=== PATIENT | female | born 1985 | race Caucasian/White ===

== ENCOUNTER 2018-08-11 00:44 | Inpatient (IN) | payer MEDICARE, OTHER ==
[~2018-08-11] VITALS: Ht 157.5 cm; Wt 68.1 kg
[2018-08-11] VITALS (20 sets, daily range): BP systolic 103–144; BP diastolic 56–84
[2018-08-11 01:05] LABS: BASO # 0.1 x10^3/uL (0.0-0.2); BASO % 0 % (0-3); EOS # 0.3 x10^3/uL (0.0-0.7); EOS % 2 % (0-3); HEMOGLOBIN 15.5 g/dL (12.0-15.5); LYMPH # 3.7 x10^3/uL (1.0-4.8); LYMPH % 23 % (24-48); MEAN CORPUSCULAR HEMOGLOBIN 30 pg (25-35); MEAN CORPUSCULAR HGB CONC 34 g/dL (31-37); MEAN CORPUSCULAR VOLUME 89 fL (79-100); MONO # 0.9 x10^3/uL (0.0-1.1); MONO % 6 % (0-9); NEUT # 10.9 x10^3uL (1.8-7.7); NEUT % 69 % (31-73); PLATELET COUNT 314 x10^3/uL (140-400); RED BLOOD COUNT 5.19 x10^6/uL (3.50-5.40); WHITE BLOOD COUNT 15.9 x10^3/uL (4.0-11.0)
[2018-08-11 01:18] LABS: CALCIUM 9.2 mg/dL (8.5-10.1); CREATININE 0.9 mg/dL (0.6-1.0); GFR 72.1; POTASSIUM 3.5 mmol/L (3.5-5.1)
[2018-08-11 01:21] LABS: BILIRUBIN,URINE NEGATIVE (NEG); CLARITY,URINE CLEAR; COLOR,URINE YELLOW; NITRITE,URINE NEGATIVE (NEG); PROTEIN,URINE NEGATIVE (NEG-TRACE); UROBILINOGEN,URINE 0.2 mg/dL (0.2 mg/dL)
[2018-08-11 01:26] LABS: ALBUMIN 4.4 g/dL (3.4-5.0); ALBUMIN/GLOBULIN RATIO 1.1 (1.0-1.7); MAGNESIUM 2.3 mg/dL (1.8-2.4); TOTAL BILIRUBIN 0.2 mg/dL (0.2-1.0); TOTAL PROTEIN 8.5 g/dL (6.4-8.2)
[2018-08-11 01:27] LABS: BARBITURATES NEG (NEG); BENZODIAZEPINES NEG (NEG); CANNABINOIDS NEG (NEG); COCAINE NEG (NEG); METHADONE NEG (NEG); OPIATES NEG (NEG); PHENCYCLIDINE NEG (NEG)
[2018-08-11 01:29] LABS: AMPHETAMINE/METHAMPHETAMINE POS (NEG)
[2018-08-11 01:30] LABS: PROTHROMBIN TIME PATIENT 10.9 SEC (11.7-14.0)
[2018-08-11] MEDS ORDERED: NALOXONE 2 MG/2 ML DISP.SYRIN. IV ONE (01:30)
[2018-08-11] MEDS ORDERED: IV NORMAL SALINE 1000ML BAG 1,000 ML IV ONE ×2 (01:30→04:00)
[2018-08-11 01:32] LABS: BACTERIA,URINE 0 /HPF (0-FEW); SQUAMOUS EPITHELIAL CELL,UR FEW /LPF; WBC,URINE 0 /HPF (0-4)
--- NOTE | 2018-08-11 02:54 | RAD ---
CT head without contrast: Reason for examination: Altered mental status. Comparison is made to previous study dated 07/02/2005. Axial images were obtained through the brain. No contrast was administered. Exposure: One or more of the following individualized dose reduction techniques were utilized for this examination: 1. Automated exposure control 2. Adjustment of the mA and/or kV according to patient size 3. Use of iterative reconstruction technique. Ventricular systems are symmetric and not abnormally dilated. No midline shift is seen. There is no evidence of intracranial hemorrhage, infarct, mass or edema. No abnormalities are seen at the orbits. The paranasal sinuses and mastoid air cells are clear. No acute skull abnormality is seen. IMPRESSION: No acute intracranial abnormality evident. Electronically signed by: Cherelle Juan MD (08/11/2018 2:51 AM) [facility] [place]
[2018-08-11] MEDS ORDERED: cefTRIAXone IV Push 1 GM VIAL. IVP ONE (04:00)
--- NOTE | 2018-08-11 04:03 | PHYS DOC ---
Past Medical History Additional Past Medical Histor: narcolepsy Alcohol Use: Occasionally Drug Use: None Adult General Chief Complaint Chief Complaint: SHORTNESS OF BREATH HPI HPI Patient is a 33 year old female who presents with difficulty breathing and altered mental status. History is limited from the patient due to her altered mental status. Patient was brought in by her boyfriend after reportedly drinking 4 ounces of alcohol tonight. Patient does have a history of narcolepsy for which she is on Adderall. Both the but boyfriend and father deny any use of recreational drugs. She has a history of significant sensitivity to narcotic pain medicines. Patient had recent neck surgery due to radicular symptoms. She traveled to [place] in April.[] Review of Systems Review of Systems Unable to obtain due to altered mental status All other systems were reviewed and found to be within normal limits, except as documented in this note. Current Medications Current Medications Current Medications Medications (Trade) Dose Ordered Sig/Kimberly Start Time Stop Time Status Last Admin Dose Admin Ceftriaxone Sodium (Rocephin) 1 gm 1X ONCE 08/11/18 04:00 08/11/18 04:01 08/11/18 03:52 1 GM Naloxone HCl (Narcan) 2 mg 1X ONCE 08/11/18 01:30 08/11/18 01:31 DC 08/11/18 00:55 2 MG Sodium Chloride 1,000 ml @ 1,000 mls/hr 1X ONCE 08/11/18 04:00 08/11/18 04:59 08/11/18 03:49 1,000 MLS/HR Allergies Allergies Allergies Coded Allergies Type Severity Reaction Last Updated Verified hydrocodone Allergy Mild irritable 08/11/18 Yes Physical Exam Physical Exam Constitutional: Well developed, well nourished, somnolent, apneic episodes.. [] HENT: Normocephalic, atraumatic, bilateral external ears normal, oropharynx moist, no oral exudates, nose normal. [] Eyes: PERRLA, conjunctiva normal, no discharge. [] Neck: Normal range of motion, no tenderness, supple, no stridor. No nuchal rigidity [] Cardiovascular:Heart rate is slightly tachycardic in the low 100s with a regular rhythm, no murmur [] Lungs & Thorax: Bilateral breath sounds clear to auscultation [] Abdomen: Bowel sounds normal, soft, no tenderness, no masses, no pulsatile masses. [] Skin: Warm, dry, no erythema, no rash. [] Back: No tenderness, no CVA tenderness. [] Extremities: No tenderness, no cyanosis, no clubbing, ROM intact, no edema. [] Neurologic: Somnolent, tolerates her oral secretions, gag reflex is present, has occasional apneic episodes[] Psychologic: Unable to assess[] Current Patient Data Lab Values Laboratory Tests Test 08/11/18 00:54 08/11/18 00:55 08/11/18 01:10 08/11/18 01:13 Glucose (Fingerstick) 86 mg/dL (70-99) White Blood Count 15.9 x10^3/uL (4.0-11.0) H Red Blood Count 5.19 x10^6/uL (3.50-5.40) Hemoglobin 15.5 g/dL (12.0-15.5) Hematocrit 46.0 % (36.0-47.0) Mean Corpuscular Volume 89 fL (79-100) Mean Corpuscular Hemoglobin 30 pg (25-35) Mean Corpuscular Hemoglobin Concent 34 g/dL (31-37) Red Cell Distribution Width 14.0 % (11.5-14.5) Platelet Count 314 x10^3/uL (140-400) Neutrophils (%) (Auto) 69 % (31-73) Lymphocytes (%) (Auto) 23 % (24-48) L Monocytes (%) (Auto) 6 % (0-9) Eosinophils (%) (Auto) 2 % (0-3) Basophils (%) (Auto) 0 % (0-3) Neutrophils # (Auto) 10.9 x10^3uL (1.8-7.7) H Lymphocytes # (Auto) 3.7 x10^3/uL (1.0-4.8) Monocytes # (Auto) 0.9 x10^3/uL (0.0-1.1) Eosinophils # (Auto) 0.3 x10^3/uL (0.0-0.7) Basophils # (Auto) 0.1 x10^3/uL (0.0-0.2) Prothrombin Time 10.9 SEC (11.7-14.0) L Prothrombin Time INR 0.8 (0.8-1.1) Maternal Serum HCG Beta Subunit < 1 mIU/mL (0-5) Sodium Level 143 mmol/L (136-145) Potassium Level 3.5 mmol/L (3.5-5.1) Chloride Level 104 mmol/L (98-107) Carbon Dioxide Level 22 mmol/L (21-32) Anion Gap 17 (6-14) H Blood Urea Nitrogen 14 mg/dL (7-20) Creatinine 0.9 mg/dL (0.6-1.0) Estimated GFR (Cockcroft-Gault) 72.1 BUN/Creatinine Ratio 16 (6-20) Glucose Level 104 mg/dL (70-99) H Lactic Acid Level 5.4 mmol/L (0.4-2.0) *H Calcium Level 9.2 mg/dL (8.5-10.1) Magnesium Level 2.3 mg/dL (1.8-2.4) Total Bilirubin 0.2 mg/dL (0.2-1.0) Aspartate Amino Transferase (AST) 23 U/L (15-37) Alanine Aminotransferase (ALT) 40 U/L (14-59) Alkaline Phosphatase 71 U/L (46-116) Ammonia 15 mcmol/L (11-34) Troponin I Quantitative < 0.017 ng/mL (0.000-0.055) OG-Rhh-Q-Type Natriuretic Peptide 12 pg/mL (0-124) Total Protein 8.5 g/dL (6.4-8.2) H Albumin 4.4 g/dL (3.4-5.0) Albumin/Globulin Ratio 1.1 (1.0-1.7) Ethyl Alcohol Level 154 mg/dL (0-10) H Urine Collection Type U cath Urine Color Yellow Urine Clarity Clear Urine pH 6.0 Urine Specific Ernest 1.010 Urine Protein Negative mg/dL (NEG-TRACE) Urine Glucose (UA) Negative mg/dL (NEG) Urine Ketones (Stick) 15 mg/dL (NEG) Urine Blood Small (NEG) Urine Nitrite Negative (NEG) Urine Bilirubin Negative (NEG) Urine Urobilinogen Dipstick 0.2 mg/dL (0.2 mg/dL) Urine Leukocyte Esterase Negative (NEG) Urine RBC 3-5 /HPF (0-2) Urine WBC 0 /HPF (0-4) Urine Squamous Epithelial Cells Few /LPF Urine Bacteria 0 /HPF (0-FEW) Urine Opiates Screen Neg (NEG) Urine Methadone Screen Neg (NEG) Urine Barbiturates Neg (NEG) Urine Phencyclidine Screen Neg (NEG) Urine Amphetamine/Methamphetamine Pos (NEG) Urine Benzodiazepines Screen Neg (NEG) Urine Cocaine Screen Neg (NEG) Urine Cannabinoids Screen Neg (NEG) Urine Ethyl Alcohol Pos (NEG) POC Urine HCG, Qualitative Hcg negative (Negative) Laboratory Tests 08/11/18 00:55 Laboratory Tests 08/11/18 00:55 EKG EKG EKG shows a sinus tachycardia at 110 bpm, normal axis, QTC of 455 ms, no ST elevation, interpreted by me at 0106[] Radiology/Procedures Radiology/Procedures Chest x-ray shows no infiltrate, no effusion, no pneumothorax CT head without contrast: Reason for examination: Altered mental status. Comparison is made to previous study dated 07/02/2005. Axial images were obtained through the brain. No contrast was administered. Exposure: One or more of the following individualized dose reduction techniques were utilized for this examination: 1. Automated exposure control 2. Adjustment of the mA and/or kV according to patient size 3. Use of iterative reconstruction technique. Ventricular systems are symmetric and not abnormally dilated. No midline shift is seen. There is no evidence of intracranial hemorrhage, infarct, mass or edema. No abnormalities are seen at the orbits. The paranasal sinuses and mastoid air cells are clear. No acute skull abnormality is seen. IMPRESSION: No acute intracranial abnormality evident.[] Course & Med Decision Making Course & Med Decision Making Pertinent Labs and Imaging studies reviewed. (See chart for details) ED course and medical decision making: Patient arrived, was placed in bed, and tolerated exam well. IV access was established. She was given Narcan with an improvement in her respiratory status but did not fully awaken. Her fingerstick was noted to be in the 80s. And her oxygen saturation was normal on 2 L nasal cannula with outside of the apneic episodes noted previously. She was transported to and from [place] with any complications. Due to the elevated lactate and the elevated white count prophylactic antibiotics are being administered however the lactate may be due to these apneic episodes and the white count due to the stress of her current condition. She is afebrile again without any nuchal rigidity. Do not believe this is meningitis. Patient continues to be somnolent again maintaining her airway, and so will be admitting her for further evaluation and treatment.[] Dragon Disclaimer Dragon Disclaimer This electronic medical record was generated, in whole or in part, using a voice recognition dictation system. Departure Departure Impression: Primary Impression: Altered mental status Additional Impressions: Elevated ETOH level Elevated lactic acid level Disposition: ADMITTED INPATIENT Admitting Physician: Laurita Jimenez Condition: IMPROVED Referrals: NO PCP (PCP) Problem Qualifiers Primary Impression: Altered mental status Altered mental status type: unspecified Qualified Codes: R41.82 - Altered mental status, unspecified Additional Impressions: Elevated ETOH level Blood alcohol level: 120-199 mg/100 ml Qualified Codes: Y90.6 - Blood alcohol level of 120-199 mg/100 ml BENOIT DE LUNA DO Aug 11, 2018 04:03
[2018-08-11] MEDS ORDERED: ONDANSETRON PF 4 MG/2 ML VIAL. IV PRN ×2 (04:15→14:15)
[2018-08-11] MEDS ORDERED: DESV100T14 PO (05:53)
[2018-08-11] MEDS ORDERED: DEXT30CA6 PO (05:54)
[2018-08-11] MEDS ORDERED: LEVO75TA5 PO (05:54)
--- NOTE | 2018-08-11 06:11 | NUR ---
Admission Note: Pt admitted to 104 from ED. Pt did not wake up while transferring to bed and speaking with patient. Pt did however wake up when checking pupilary response. After she woke up she was appropriate in answering questions. Began to cough, states she has had that cough ever since a week after her C5/C6 fusion surgery last week at [facility]. Admitted to mildly drinking early in the night. Home meds reviewed with patient. Boyfriend and Father have been in room. SR/ST on monitor, left on 2L NC that ED put on her. Vitals stable. Pt did however go back into very deep sleep after left alone. Boyfriend remains at bedside.
[2018-08-11] MEDS: IV NORMAL SALINE 1000ML BAG 1,000 ML IV SCH ×3 (06:38→20:31)
--- NOTE | 2018-08-11 08:04 | RAD ---
EXAM: CHEST 1 VIEW History: Altered mental status COMPARISON: 05/13/2007 TECHNIQUE: Single portable radiograph of the chest FINDINGS: The cardiac silhouette is unremarkable. The lungs are clear bilaterally. The costophrenic sulci are clear and well demarcated. IMPRESSION: No radiographic evidence of an acute cardiopulmonary process. Electronically signed by: Matti Shaw MD (08/11/2018 8:01 AM) [facility]
--- NOTE | 2018-08-11 11:11 | PDOC1 ---
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 Both the but boyfriend and father deny any use of recreational drugs. SHE TAKES adderall for narcolepsy so UDS FALSELY POS FOR METH She has a history of significant sensitivity to narcotic pain medicines. Patient had recent neck surgery due to radicular symptoms. 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 [place] Past Medical History Past Medical History Past Medical History Additional Past Medical Histor: narcolepsy Alcohol Use: Occasionally Drug Use: None ALCOHOL ABUSE FAMILY HX HTN, ETOH Cardiovascular: No pertinent hx Pulmonary: Asthma GI: No pertinent hx Infectious disease: No pertinent hx Family History Family History: Hypertension Social History Smoke: No ALCOHOL: social Drugs: None, Other (IS A MED STUDENT HAS FINISHED HER 2ND YEAR IN [place]) Current Medications Current Medications Current Medications Naloxone HCl (Narcan) 2 mg 1X ONCE IV Last administered on 08/11/18at 00:55; Start 08/11/18 at 01:30; Stop 08/11/18 at 01:31; Status DC Sodium Chloride 1,000 ml @ 1,000 mls/hr 1X ONCE IV Last administered on at 01:19; Start 08/11/18 at 01:30; Stop 08/11/18 at 02:29; Status DC Sodium Chloride 1,000 ml @ 1,000 mls/hr 1X ONCE IV Last administered on at 03:49; Start 08/11/18 at 04:00; Stop 08/11/18 at 04:59; Status DC Ceftriaxone Sodium (Rocephin) 1 gm 1X ONCE IVP Last administered on 08/11/18at 03:52; Start 08/11/18 at 04:00; Stop 08/11/18 at 04:01; Status DC Ondansetron HCl (Zofran) 4 mg PRN Q8HRS PRN IV NAUSEA/VOMITING 1ST CHOICE; Start 08/11/18 at 04:15; Stop 08/12/18 at 04:14 Sodium Chloride 1,000 ml @ 150 mls/hr Q6H40M IV Last administered on at 06:38; Start 08/11/18 at 04:30; Stop 08/12/18 at 04:29 Active Scripts Active Reported Adderall Xr 30 Mg Capsule (Dextroamphetamine/Amphetamine) 30 Mg Cap.er.24h 1 Cap PO BID Levothyroxine Sodium 75 Mcg Tablet 1 Tab PO DAILY Khedezla (Desvenlafaxine) 100 Mg Tab.er.24h 100 Mg PO DAILY Allergies Allergies: Coded Allergies: hydrocodone (Verified Allergy, Mild, irritable, 08/11/18) ROS Review of System 14 PT ROS OTHERWISE NEG General: No: Chills, Night Sweats, Fatigue, Malaise, Appetite, Other PSYCHOLOGICAL ROS: No: Anxiety, Behavioral Disorder, Concentration difficultie , Decreased libido, Depression, Disorientation, Hallucinations, Hostility, Irritablity, Memory difficulties, Mood Swings, Obsessive thoughts, Physical abuse, Sexual abuse, Sleep disturbances, Suicidal ideation, Other Eyes: No Blurry vision, No Decreased vision, No Double vision, No Dry eyes, No Excessive tearing, No Eye Pain, No Itchy Eyes, No Loss of vision, No Photophobia , No Scotomata, No Uses contacts, No Uses glasses, No Other HEENT: No: Heacaches, Visual Changes, Hearing change, Nasal congestion, Nasal discharge, Oral lesions, Sinus pain, Sore Throat, Epistaxis, Sneezing, Snoring, Tinnitus, Vertigo, Vocal changes, Other ALLERGY AND IMMUNOLOGY: No: Hives, Insect Bite Sensitivity, Itchy/Watery Eyes, Nasal Congestion, Post Nasal Drip, Seasonal Allergies, Other Hematological and Lymphatic: No: Bleeding Problems, Blood Clots, Blood Transfusions, Brusing, Night Sweats, Pallor, Swollen Lymph Nodes, Other ENDOCRINE: No: Breast Changes, Galactorrhea, Hair Pattern Changes, Hot Flashes , Malaise/lethargy, Mood Swings, Palpitations, Polydipsia/polyuria, Skin Changes , Temperature Intolerance, Unexpected Weight Changes, Other Breast: No New/Changing Breast Lumps, No Nipple changes, No Nipple discharge, No Other Respiratory: YES: Cough, SOB with excertion; No: Hemoptysis, Orthopnea, Pleuritic Pain, Shortness of breath, Sputum Changes, Stridor, Tachypnea, Wheezing, Other Cardiovascular: No Chest Pain, No Palpitations, No Orthopnea, No Paroxysmal Noc. Dyspnea, No Edema, No Lt Headedness, No Other Gastrointestinal: No Nausea, No Vomiting, No Abdominal Pain, No Diarrhea, No Constipation, No Melena, No Hematochezia, No Other Genitourinary: No Dysuria, No Frequency, No Incontinence, No Hematuria, No Retention, No Discharge, No Urgency, No Pain, No Flank Pain, No Other, No , No , No , No , No , No , No Neurological: No Behavorial Changes, No Bowel/Bladder ControlChng, No Confusion , No Dizziness, No Gait Disturbance, No Headaches, No Impaired Coord/balance, No Memory Loss, No Numbness/Tingling, No Seizures, No Speech Problems, No Tremors, No Visual Changes, No Weakness, No Other Skin: No Dry Skin, No Eczema, No Hair Changes, No Lumps, No Mole Changes, No Mottling, No Nail Changes, No Pruritus, No Rash, No Skin Lesion Changes, No Other, No Acne Physical Exam Physical Exam Physical Exam Physical Exam Constitutional: Well developed, well nourished, somnolent, apneic episodes.. [] HENT: Normocephalic, atraumatic, bilateral external ears normal, oropharynx moist, no oral exudates, nose normal. [] Eyes: PERRLA, conjunctiva normal, no discharge. [] Neck: Normal range of motion, no tenderness, supple, no stridor. No nuchal rigidity [] Cardiovascular:Heart rate is slightly tachycardic in the low 100s with a regular rhythm, no murmur [] Lungs & Thorax: Bilateral breath sounds clear to auscultation [] Abdomen: Bowel sounds normal, soft, no tenderness, no masses, no pulsatile masses. [] Skin: Warm, dry, no erythema, no rash. [] Back: No tenderness, no CVA tenderness. [] Extremities: No tenderness, no cyanosis, no clubbing, ROM intact, no edema. [] General: Alert, Oriented X3, Cooperative, mild distress HEENT: Atraumatic, PERRLA Lungs: Clear to auscultation Heart: RRR, no murmurs Breasts: Not examined Abdomen: Normal bowel sounds, Soft, No tenderness Rectal Exam: not examined PELVIC: Examination not indicated Extremities: No clubbing, No cyanosis Skin: No significant lesion Neuro: Normal speech, Strength at 5/5 X4 ext, Cranial nerves 3-12 NL Psych/Mental Status: Mental status NL, Mood NL Vitals Vitals Vital Signs Date Time Temp Pulse Resp B/P (MAP) Pulse Ox O2 Delivery O2 Flow Rate FiO2 08/11/18 08:00 98.5 92 16 127/64 (85) 98 Room Air 98.5 08/11/18 07:00 2.0 Labs Labs Laboratory Tests Test 08/11/18 00:54 08/11/18 00:55 08/11/18 01:10 08/11/18 01:13 Glucose (Fingerstick) 86 mg/dL (70-99) White Blood Count 15.9 x10^3/uL (4.0-11.0) Red Blood Count 5.19 x10^6/uL (3.50-5.40) Hemoglobin 15.5 g/dL (12.0-15.5) Hematocrit 46.0 % (36.0-47.0) Mean Corpuscular Volume 89 fL (79-100) Mean Corpuscular Hemoglobin 30 pg (25-35) Mean Corpuscular Hemoglobin Concent 34 g/dL (31-37) Red Cell Distribution Width 14.0 % (11.5-14.5) Platelet Count 314 x10^3/uL (140-400) Neutrophils (%) (Auto) 69 % (31-73) Lymphocytes (%) (Auto) 23 % (24-48) Monocytes (%) (Auto) 6 % (0-9) Eosinophils (%) (Auto) 2 % (0-3) Basophils (%) (Auto) 0 % (0-3) Neutrophils # (Auto) 10.9 x10^3uL (1.8-7.7) Lymphocytes # (Auto) 3.7 x10^3/uL (1.0-4.8) Monocytes # (Auto) 0.9 x10^3/uL (0.0-1.1) Eosinophils # (Auto) 0.3 x10^3/uL (0.0-0.7) Basophils # (Auto) 0.1 x10^3/uL (0.0-0.2) Prothrombin Time 10.9 SEC (11.7-14.0) Prothromb Time International Ratio 0.8 (0.8-1.1) Maternal Serum HCG Beta Subunit < 1 mIU/mL (0-5) Sodium Level 143 mmol/L (136-145) Potassium Level 3.5 mmol/L (3.5-5.1) Chloride Level 104 mmol/L (98-107) Carbon Dioxide Level 22 mmol/L (21-32) Anion Gap 17 (6-14) Blood Urea Nitrogen 14 mg/dL (7-20) Creatinine 0.9 mg/dL (0.6-1.0) Estimated GFR (Cockcroft-Gault) 72.1 BUN/Creatinine Ratio 16 (6-20) Glucose Level 104 mg/dL (70-99) Lactic Acid Level 5.4 mmol/L (0.4-2.0) Calcium Level 9.2 mg/dL (8.5-10.1) Magnesium Level 2.3 mg/dL (1.8-2.4) Total Bilirubin 0.2 mg/dL (0.2-1.0) Aspartate Amino Transf (AST/SGOT) 23 U/L (15-37) Alanine Aminotransferase (ALT/SGPT) 40 U/L (14-59) Alkaline Phosphatase 71 U/L (46-116) Ammonia 15 mcmol/L (11-34) Troponin I Quantitative < 0.017 ng/mL (0.000-0.055) LA-Ztm-V-Type Natriuretic Peptide 12 pg/mL (0-124) Total Protein 8.5 g/dL (6.4-8.2) Albumin 4.4 g/dL (3.4-5.0) Albumin/Globulin Ratio 1.1 (1.0-1.7) Ethyl Alcohol Level 154 mg/dL (0-10) Urine Collection Type U cath Urine Color Yellow Urine Clarity Clear Urine pH 6.0 Urine Specific [place] 1.010 Urine Protein Negative mg/dL (NEG-TRACE) Urine Glucose (UA) Negative mg/dL (NEG) Urine Ketones (Stick) 15 mg/dL (NEG) Urine Blood Small (NEG) Urine Nitrite Negative (NEG) Urine Bilirubin Negative (NEG) Urine Urobilinogen Dipstick 0.2 mg/dL (0.2 mg/dL) Urine Leukocyte Esterase Negative (NEG) Urine RBC 3-5 /HPF (0-2) Urine WBC 0 /HPF (0-4) Urine Squamous Epithelial Cells Few /LPF Urine Bacteria 0 /HPF (0-FEW) Urine Opiates Screen Neg (NEG) Urine Methadone Screen Neg (NEG) Urine Barbiturates Neg (NEG) Urine Phencyclidine Screen Neg (NEG) Urine Amphetamine/Methamphetamine Pos (NEG) Urine Benzodiazepines Screen Neg (NEG) Urine Cocaine Screen Neg (NEG) Urine Cannabinoids Screen Neg (NEG) Urine Ethyl Alcohol Pos (NEG) Bedside Urine HCG, Qualitative Hcg negative (Negative) Test 08/11/18 07:15 Lactic Acid Level 1.9 mmol/L (0.4-2.0) Laboratory Tests Test 08/11/18 00:54 08/11/18 00:55 08/11/18 01:10 08/11/18 01:13 Glucose (Fingerstick) 86 mg/dL (70-99) White Blood Count 15.9 x10^3/uL (4.0-11.0) Red Blood Count 5.19 x10^6/uL (3.50-5.40) Hemoglobin 15.5 g/dL (12.0-15.5) Hematocrit 46.0 % (36.0-47.0) Mean Corpuscular Volume 89 fL (79-100) Mean Corpuscular Hemoglobin 30 pg (25-35) Mean Corpuscular Hemoglobin Concent 34 g/dL (31-37) Red Cell Distribution Width 14.0 % (11.5-14.5) Platelet Count 314 x10^3/uL (140-400) Neutrophils (%) (Auto) 69 % (31-73) Lymphocytes (%) (Auto) 23 % (24-48) Monocytes (%) (Auto) 6 % (0-9) Eosinophils (%) (Auto) 2 % (0-3) Basophils (%) (Auto) 0 % (0-3) Neutrophils # (Auto) 10.9 x10^3uL (1.8-7.7) Lymphocytes # (Auto) 3.7 x10^3/uL (1.0-4.8) Monocytes # (Auto) 0.9 x10^3/uL (0.0-1.1) Eosinophils # (Auto) 0.3 x10^3/uL (0.0-0.7) Basophils # (Auto) 0.1 x10^3/uL (0.0-0.2) Prothrombin Time 10.9 SEC (11.7-14.0) Prothromb Time International Ratio 0.8 (0.8-1.1) Maternal Serum HCG Beta Subunit < 1 mIU/mL (0-5) Sodium Level 143 mmol/L (136-145) Potassium Level 3.5 mmol/L (3.5-5.1) Chloride Level 104 mmol/L (98-107) Carbon Dioxide Level 22 mmol/L (21-32) Anion Gap 17 (6-14) Blood Urea Nitrogen 14 mg/dL (7-20) Creatinine 0.9 mg/dL (0.6-1.0) Estimated GFR (Cockcroft-Gault) 72.1 BUN/Creatinine Ratio 16 (6-20) Glucose Level 104 mg/dL (70-99) Lactic Acid Level 5.4 mmol/L (0.4-2.0) Calcium Level 9.2 mg/dL (8.5-10.1) Magnesium Level 2.3 mg/dL (1.8-2.4) Total Bilirubin 0.2 mg/dL (0.2-1.0) Aspartate Amino Transf (AST/SGOT) 23 U/L (15-37) Alanine Aminotransferase (ALT/SGPT) 40 U/L (14-59) Alkaline Phosphatase 71 U/L (46-116) Ammonia 15 mcmol/L (11-34) Troponin I Quantitative < 0.017 ng/mL (0.000-0.055) ZI-Kid-V-Type Natriuretic Peptide 12 pg/mL (0-124) Total Protein 8.5 g/dL (6.4-8.2) Albumin 4.4 g/dL (3.4-5.0) Albumin/Globulin Ratio 1.1 (1.0-1.7) Ethyl Alcohol Level 154 mg/dL (0-10) Urine Collection Type U cath Urine Color Yellow Urine Clarity Clear Urine pH 6.0 Urine Specific [place] 1.010 Urine Protein Negative mg/dL (NEG-TRACE) Urine Glucose (UA) Negative mg/dL (NEG) Urine Ketones (Stick) 15 mg/dL (NEG) Urine Blood Small (NEG) Urine Nitrite Negative (NEG) Urine Bilirubin Negative (NEG) Urine Urobilinogen Dipstick 0.2 mg/dL (0.2 mg/dL) Urine Leukocyte Esterase Negative (NEG) Urine RBC 3-5 /HPF (0-2) Urine WBC 0 /HPF (0-4) Urine Squamous Epithelial Cells Few /LPF Urine Bacteria 0 /HPF (0-FEW) Urine Opiates Screen Neg (NEG) Urine Methadone Screen Neg (NEG) Urine Barbiturates Neg (NEG) Urine Phencyclidine Screen Neg (NEG) Urine Amphetamine/Methamphetamine Pos (NEG) Urine Benzodiazepines Screen Neg (NEG) Urine Cocaine Screen Neg (NEG) Urine Cannabinoids Screen Neg (NEG) Urine Ethyl Alcohol Pos (NEG) Bedside Urine HCG, Qualitative Hcg negative (Negative) Test 08/11/18 07:15 Lactic Acid Level 1.9 mmol/L (0.4-2.0) Images Images CT head without contrast: Reason for examination: Altered mental status. Comparison is made to previous study dated 07/02/2005. Axial images were obtained through the brain. No contrast was administered. Exposure: One or more of the following individualized dose reduction techniques were utilized for this examination: 1. Automated exposure control 2. Adjustment of the mA and/or kV according to patient size 3. Use of iterative reconstruction technique. Ventricular systems are symmetric and not abnormally dilated. No midline shift is seen. There is no evidence of intracranial hemorrhage, infarct, mass or edema. No abnormalities are seen at the orbits. The paranasal sinuses and mastoid air cells are clear. No acute skull abnormality is seen. IMPRESSION: No acute intracranial abnormality evident. Electronically signed by: Cherelle Del Rosario MD (08/11/2018 2:51 AM) [facility] DICTATED and SIGNED BY: CHERELLE DEL ROSARIO MD DATE: 08/11/18 0251 VTE Prophylaxis Ordered VTE Prophylaxis Devices: Yes VTE Pharmacological Prophylaxi: Yes Assessment/Plan Assessment/Plan Impression: Altered mental status Elevated ETOH level Elevated lactic acid level ALCOHOL TOXICITY HX NARCOLOPSY uti LEUKOCYTOSIS ASTHMA EXAC, acute has persistent cough// moderate persistent asthma symptoms x 2 yrs ADMITTED icu bed KEEP HERE TODAY neurochecks q 4 hrs [facility] BLOOD CULT URINE CULT IV FLUID SUPPORT EMPERIC IV ANTIBIOTICS, Rocephin FOLLOW LACTIC ACID ID CONSULT DVT PROPHYLAXIS PULM CONSULT ALBUTEROL Q 4 HRS NEB BUDESONIDE BID 33 MIN CC TIME EDUARDO CHING MD Aug 11, 2018 11:11
--- NOTE | 2018-08-11 14:13 | EKG ---
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
[2018-08-11] MEDS ORDERED: 0.9 % SODIUM CHLORIDE 3ML DISP.SYRIN. IV PRN (14:15)
[2018-08-11] MEDS ORDERED: DOCUSATE SODIUM 100 MG CAPSULE. PO PRN (14:15)
[2018-08-11] MEDS ORDERED: ACETAMINOPHEN 650 MG/20.3 ML SOLUTION. GT PRN (14:15)
[2018-08-11] MEDS ORDERED: cloNIDine HCL 0.1 MG TABLET PO PRN (14:15)
[2018-08-11] MEDS ORDERED: VANCOMYCIN PER PHARMACY MC PRN (14:15)
[2018-08-11] MEDS ORDERED: MAG HYDROX/ALUMINUM HYD/SIMETH 30 ML ORAL.SUSP PO PRN (14:15)
[2018-08-11] MEDS ORDERED: ACETAMINOPHEN 325 MG TABLET. PO PRN (14:15)
[2018-08-11] MEDS ORDERED: diphenhydrAMINE 50 MG/ML VIAL IVP PRN (14:15)
[2018-08-11] MEDS ORDERED: LORazepam 0.5 MG TABLET PO PRN (14:15)
[2018-08-11] MEDS ORDERED: SODIUM PHOSPHATES 19/7GM 133 ML ENEMA. PR PRN (14:15)
[2018-08-11] MEDS: ENOXAPARIN 40 MG/0.4 ML SYRINGE. SQ SCH (14:41)
[2018-08-11] MEDS ORDERED: MULTIVIT INFUSN,ADULT 4,VIT K 10 ML, THIAMINE INJ 100 MG, FOLIC ACID INJ 1 MG in IV NOR... IV SCH (15:00)
[2018-08-11] MEDS: guaiFENesin ORAL 200 MG/10 ML LIQUID. PO PRN ×2 (15:23→19:25)
[2018-08-11] MEDS: methylPREDNISolone SOD SUCC PF 125 MG/2 ML VIAL. IV SCH ×2 (15:24→20:24)
[2018-08-11] MEDS: ALBUTEROL SULFATE 2.5 MG/3 ML NEBU. NEB PRN (17:20)
[2018-08-11] MEDS: MONTELUKAST SODIUM 10 MG TABLET. PO SCH (20:24)
[2018-08-11] MEDS: BUDESONIDE 0.5 MG/2 ML NEBU. NEB SCH (20:37)
[2018-08-11] MEDS: ALBUTEROL SULFATE 2.5 MG/3 ML NEBU. NEB SCH (20:37)
[2018-08-12] VITALS (12 sets, daily range): BP systolic 96–130; BP diastolic 47–82
[2018-08-12 05:00] LABS: BASO % 0 % (0-3); EOS % 0 % (0-3); HEMOGLOBIN 12.5 g/dL (12.0-15.5); LYMPH # 0.8 x10^3/uL (1.0-4.8); LYMPH % 5 % (24-48); MEAN CORPUSCULAR HEMOGLOBIN 30 pg (25-35); MEAN CORPUSCULAR HGB CONC 33 g/dL (31-37); MEAN CORPUSCULAR VOLUME 89 fL (79-100); MONO # 0.3 x10^3/uL (0.0-1.1); MONO % 2 % (0-9); NEUT # 16.2 x10^3uL (1.8-7.7); NEUT % 94 % (31-73); PLATELET COUNT 240 x10^3/uL (140-400); RED BLOOD COUNT 4.26 x10^6/uL (3.50-5.40); RED CELL DISTRIBUTION WIDTH 14.1 % (11.5-14.5); WHITE BLOOD COUNT 17.3 x10^3/uL (4.0-11.0)
[2018-08-12 05:26] LABS: ALBUMIN 3.3 g/dL (3.4-5.0); ALBUMIN/GLOBULIN RATIO 0.9 (1.0-1.7); CALCIUM 8.4 mg/dL (8.5-10.1); CREATININE 0.5 mg/dL (0.6-1.0); GFR 142.1; POTASSIUM 3.8 mmol/L (3.5-5.1); TOTAL BILIRUBIN 0.4 mg/dL (0.2-1.0); TOTAL PROTEIN 6.9 g/dL (6.4-8.2)
[2018-08-12 05:39] LABS: % BANDS 3 % (0-9); % LYMPHS 8 % (24-48); % SEGS 89 % (35-66); PLT ESTIMATE ADEQUATE (ADEQUATE)
[2018-08-12] MEDS: LEVOTHYROXINE 75 MCG TABLET PO SCH (06:33)
[2018-08-12] MEDS: IV NORMAL SALINE 1000ML BAG 1,000 ML IV SCH (06:33)
[2018-08-12] MEDS: methylPREDNISolone SOD SUCC PF 125 MG/2 ML VIAL. IV SCH ×3 (06:33→21:30)
[2018-08-12] MEDS: ALBUTEROL SULFATE 2.5 MG/3 ML NEBU. NEB SCH ×4 (08:47→19:24)
[2018-08-12] MEDS: BUDESONIDE 0.5 MG/2 ML NEBU. NEB SCH ×2 (08:47→19:24)
--- NOTE | 2018-08-12 08:56 | PDOC ---
PROGRESS NOTES Chief Complaint Chief Complaint Altered mental status Elevated ETOH level Spurious elevation lactic acid level resolved ALCOHOL TOXICITY HX NARCOLOPSY uti LEUKOCYTOSIS which may be reactive most likely given the lack of infectious process evident ASTHMA EXAC, acute has persistent cough// moderate persistent asthma symptoms x 2 yrs Plan Downgraded to medical floor Start codeine We'll do a trial of prednisone Pulmonology evaluation pending ENT consultation in the outpatient setting is scheduled for Sunday History of Present Illness History of Present Illness Patient with history of a recent cervical fusion and subsequently developing a persistent cough that sounds like a crup type of cough. Patient denies fever no weight loss or lymphadenopathy was reported. Patient denies reflux disease no postnasal drip reported either. Patient refers chest discomfort as a consequence of her coughing effort. No other complaints no sick contacts. Plan of care explained in detail Vitals Vitals Vital Signs Date Time Temp Pulse Resp B/P (MAP) Pulse Ox O2 Delivery O2 Flow Rate FiO2 08/12/18 08:47 Nasal Cannula 2.0 08/12/18 07:00 70 24 117/82 (94) 100 08/12/18 04:00 98.6 98.6 Physical Exam General: Alert, Oriented X3, Cooperative, mild distress Lungs: Clear Abdomen: Normal bowel sounds, Soft, No tenderness Extremities: No clubbing, No cyanosis Skin: No significant lesion Labs LABS Laboratory Tests Test 08/11/18 14:45 08/12/18 04:30 08/12/18 04:35 Troponin I Quantitative < 0.017 ng/mL (0.000-0.055) Sodium Level 141 mmol/L (136-145) Potassium Level 3.8 mmol/L (3.5-5.1) Chloride Level 105 mmol/L (98-107) Carbon Dioxide Level 24 mmol/L (21-32) Anion Gap 12 (6-14) Blood Urea Nitrogen 8 mg/dL (7-20) Creatinine 0.5 mg/dL (0.6-1.0) Estimated GFR (Cockcroft-Gault) 142.1 BUN/Creatinine Ratio 16 (6-20) Glucose Level 148 mg/dL (70-99) Calcium Level 8.4 mg/dL (8.5-10.1) Total Bilirubin 0.4 mg/dL (0.2-1.0) Aspartate Amino Transf (AST/SGOT) 21 U/L (15-37) Alanine Aminotransferase (ALT/SGPT) 27 U/L (14-59) Alkaline Phosphatase 49 U/L (46-116) Total Protein 6.9 g/dL (6.4-8.2) Albumin 3.3 g/dL (3.4-5.0) Albumin/Globulin Ratio 0.9 (1.0-1.7) White Blood Count 17.3 x10^3/uL (4.0-11.0) Red Blood Count 4.26 x10^6/uL (3.50-5.40) Hemoglobin 12.5 g/dL (12.0-15.5) Hematocrit 38.0 % (36.0-47.0) Mean Corpuscular Volume 89 fL (79-100) Mean Corpuscular Hemoglobin 30 pg (25-35) Mean Corpuscular Hemoglobin Concent 33 g/dL (31-37) Red Cell Distribution Width 14.1 % (11.5-14.5) Platelet Count 240 x10^3/uL (140-400) Neutrophils (%) (Auto) 94 % (31-73) Lymphocytes (%) (Auto) 5 % (24-48) Monocytes (%) (Auto) 2 % (0-9) Eosinophils (%) (Auto) 0 % (0-3) Basophils (%) (Auto) 0 % (0-3) Neutrophils # (Auto) 16.2 x10^3uL (1.8-7.7) Lymphocytes # (Auto) 0.8 x10^3/uL (1.0-4.8) Monocytes # (Auto) 0.3 x10^3/uL (0.0-1.1) Eosinophils # (Auto) 0.0 x10^3/uL (0.0-0.7) Basophils # (Auto) 0.0 x10^3/uL (0.0-0.2) Segmented Neutrophils % 89 % (35-66) Band Neutrophils % 3 % (0-9) Lymphocytes % 8 % (24-48) Platelet Estimate Adequate (ADEQUATE) Review of Systems Review of Systems Positive as per history of present illness otherwise 14 point review of system is negative Comment Review of Relevant I have reviewed the following items alejandrina (where applicable) has been applied. Labs Laboratory Tests Test 3/17/19 00:54 08/11/18 00:55 08/11/18 01:10 08/11/18 01:13 Glucose (Fingerstick) 86 mg/dL (70-99) White Blood Count 15.9 x10^3/uL (4.0-11.0) Red Blood Count 5.19 x10^6/uL (3.50-5.40) Hemoglobin 15.5 g/dL (12.0-15.5) Hematocrit 46.0 % (36.0-47.0) Mean Corpuscular Volume 89 fL (79-100) Mean Corpuscular Hemoglobin 30 pg (25-35) Mean Corpuscular Hemoglobin Concent 34 g/dL (31-37) Red Cell Distribution Width 14.0 % (11.5-14.5) Platelet Count 314 x10^3/uL (140-400) Neutrophils (%) (Auto) 69 % (31-73) Lymphocytes (%) (Auto) 23 % (24-48) Monocytes (%) (Auto) 6 % (0-9) Eosinophils (%) (Auto) 2 % (0-3) Basophils (%) (Auto) 0 % (0-3) Neutrophils # (Auto) 10.9 x10^3uL (1.8-7.7) Lymphocytes # (Auto) 3.7 x10^3/uL (1.0-4.8) Monocytes # (Auto) 0.9 x10^3/uL (0.0-1.1) Eosinophils # (Auto) 0.3 x10^3/uL (0.0-0.7) Basophils # (Auto) 0.1 x10^3/uL (0.0-0.2) Prothrombin Time 10.9 SEC (11.7-14.0) Prothromb Time International Ratio 0.8 (0.8-1.1) Maternal Serum HCG Beta Subunit < 1 mIU/mL (0-5) Sodium Level 143 mmol/L (136-145) Potassium Level 3.5 mmol/L (3.5-5.1) Chloride Level 104 mmol/L (98-107) Carbon Dioxide Level 22 mmol/L (21-32) Anion Gap 17 (6-14) Blood Urea Nitrogen 14 mg/dL (7-20) Creatinine 0.9 mg/dL (0.6-1.0) Estimated GFR (Cockcroft-Gault) 72.1 BUN/Creatinine Ratio 16 (6-20) Glucose Level 104 mg/dL (70-99) Lactic Acid Level 5.4 mmol/L (0.4-2.0) Calcium Level 9.2 mg/dL (8.5-10.1) Magnesium Level 2.3 mg/dL (1.8-2.4) Total Bilirubin 0.2 mg/dL (0.2-1.0) Aspartate Amino Transf (AST/SGOT) 23 U/L (15-37) Alanine Aminotransferase (ALT/SGPT) 40 U/L (14-59) Alkaline Phosphatase 71 U/L (46-116) Ammonia 15 mcmol/L (11-34) Troponin I Quantitative < 0.017 ng/mL (0.000-0.055) UL-Unr-G-Type Natriuretic Peptide 12 pg/mL (0-124) Total Protein 8.5 g/dL (6.4-8.2) Albumin 4.4 g/dL (3.4-5.0) Albumin/Globulin Ratio 1.1 (1.0-1.7) Ethyl Alcohol Level 154 mg/dL (0-10) Urine Collection Type U cath Urine Color Yellow Urine Clarity Clear Urine pH 6.0 Urine Specific [place] 1.010 Urine Protein Negative mg/dL (NEG-TRACE) Urine Glucose (UA) Negative mg/dL (NEG) Urine Ketones (Stick) 15 mg/dL (NEG) Urine Blood Small (NEG) Urine Nitrite Negative (NEG) Urine Bilirubin Negative (NEG) Urine Urobilinogen Dipstick 0.2 mg/dL (0.2 mg/dL) Urine Leukocyte Esterase Negative (NEG) Urine RBC 3-5 /HPF (0-2) Urine WBC 0 /HPF (0-4) Urine Squamous Epithelial Cells Few /LPF Urine Bacteria 0 /HPF (0-FEW) Urine Opiates Screen Neg (NEG) Urine Methadone Screen Neg (NEG) Urine Barbiturates Neg (NEG) Urine Phencyclidine Screen Neg (NEG) Urine Amphetamine/Methamphetamine Pos (NEG) Urine Benzodiazepines Screen Neg (NEG) Urine Cocaine Screen Neg (NEG) Urine Cannabinoids Screen Neg (NEG) Urine Ethyl Alcohol Pos (NEG) Bedside Urine HCG, Qualitative Hcg negative (Negative) Test 08/11/18 05:15 08/11/18 07:15 08/11/18 14:45 08/12/18 04:30 Nasal Screen MRSA (PCR) Negative (Negative) Lactic Acid Level 1.9 mmol/L (0.4-2.0) Troponin I Quantitative < 0.017 ng/mL (0.000-0.055) Sodium Level 141 mmol/L (136-145) Potassium Level 3.8 mmol/L (3.5-5.1) Chloride Level 105 mmol/L (98-107) Carbon Dioxide Level 24 mmol/L (21-32) Anion Gap 12 (6-14) Blood Urea Nitrogen 8 mg/dL (7-20) Creatinine 0.5 mg/dL (0.6-1.0) Estimated GFR (Cockcroft-Gault) 142.1 BUN/Creatinine Ratio 16 (6-20) Glucose Level 148 mg/dL (70-99) Calcium Level 8.4 mg/dL (8.5-10.1) Total Bilirubin 0.4 mg/dL (0.2-1.0) Aspartate Amino Transf (AST/SGOT) 21 U/L (15-37) Alanine Aminotransferase (ALT/SGPT) 27 U/L (14-59) Alkaline Phosphatase 49 U/L (46-116) Total Protein 6.9 g/dL (6.4-8.2) Albumin 3.3 g/dL (3.4-5.0) Albumin/Globulin Ratio 0.9 (1.0-1.7) Test 08/12/18 04:35 White Blood Count 17.3 x10^3/uL (4.0-11.0) Red Blood Count 4.26 x10^6/uL (3.50-5.40) Hemoglobin 12.5 g/dL (12.0-15.5) Hematocrit 38.0 % (36.0-47.0) Mean Corpuscular Volume 89 fL (79-100) Mean Corpuscular Hemoglobin 30 pg (25-35) Mean Corpuscular Hemoglobin Concent 33 g/dL (31-37) Red Cell Distribution Width 14.1 % (11.5-14.5) Platelet Count 240 x10^3/uL (140-400) Neutrophils (%) (Auto) 94 % (31-73) Lymphocytes (%) (Auto) 5 % (24-48) Monocytes (%) (Auto) 2 % (0-9) Eosinophils (%) (Auto) 0 % (0-3) Basophils (%) (Auto) 0 % (0-3) Neutrophils # (Auto) 16.2 x10^3uL (1.8-7.7) Lymphocytes # (Auto) 0.8 x10^3/uL (1.0-4.8) Monocytes # (Auto) 0.3 x10^3/uL (0.0-1.1) Eosinophils # (Auto) 0.0 x10^3/uL (0.0-0.7) Basophils # (Auto) 0.0 x10^3/uL (0.0-0.2) Segmented Neutrophils % 89 % (35-66) Band Neutrophils % 3 % (0-9) Lymphocytes % 8 % (24-48) Platelet Estimate Adequate (ADEQUATE) Laboratory Tests Test 08/11/18 14:45 08/12/18 04:30 08/12/18 04:35 Troponin I Quantitative < 0.017 ng/mL (0.000-0.055) Sodium Level 141 mmol/L (136-145) Potassium Level 3.8 mmol/L (3.5-5.1) Chloride Level 105 mmol/L (98-107) Carbon Dioxide Level 24 mmol/L (21-32) Anion Gap 12 (6-14) Blood Urea Nitrogen 8 mg/dL (7-20) Creatinine 0.5 mg/dL (0.6-1.0) Estimated GFR (Cockcroft-Gault) 142.1 BUN/Creatinine Ratio 16 (6-20) Glucose Level 148 mg/dL (70-99) Calcium Level 8.4 mg/dL (8.5-10.1) Total Bilirubin 0.4 mg/dL (0.2-1.0) Aspartate Amino Transf (AST/SGOT) 21 U/L (15-37) Alanine Aminotransferase (ALT/SGPT) 27 U/L (14-59) Alkaline Phosphatase 49 U/L (46-116) Total Protein 6.9 g/dL (6.4-8.2) Albumin 3.3 g/dL (3.4-5.0) Albumin/Globulin Ratio 0.9 (1.0-1.7) White Blood Count 17.3 x10^3/uL (4.0-11.0) Red Blood Count 4.26 x10^6/uL (3.50-5.40) Hemoglobin 12.5 g/dL (12.0-15.5) Hematocrit 38.0 % (36.0-47.0) Mean Corpuscular Volume 89 fL (79-100) Mean Corpuscular Hemoglobin 30 pg (25-35) Mean Corpuscular Hemoglobin Concent 33 g/dL (31-37) Red Cell Distribution Width 14.1 % (11.5-14.5) Platelet Count 240 x10^3/uL (140-400) Neutrophils (%) (Auto) 94 % (31-73) Lymphocytes (%) (Auto) 5 % (24-48) Monocytes (%) (Auto) 2 % (0-9) Eosinophils (%) (Auto) 0 % (0-3) Basophils (%) (Auto) 0 % (0-3) Neutrophils # (Auto) 16.2 x10^3uL (1.8-7.7) Lymphocytes # (Auto) 0.8 x10^3/uL (1.0-4.8) Monocytes # (Auto) 0.3 x10^3/uL (0.0-1.1) Eosinophils # (Auto) 0.0 x10^3/uL (0.0-0.7) Basophils # (Auto) 0.0 x10^3/uL (0.0-0.2) Segmented Neutrophils % 89 % (35-66) Band Neutrophils % 3 % (0-9) Lymphocytes % 8 % (24-48) Platelet Estimate Adequate (ADEQUATE) Microbiology 08/11/18 Blood Culture - Preliminary, Resulted NO GROWTH AFTER 1 DAY Medications Current Medications Naloxone HCl (Narcan) 2 mg 1X ONCE IV Last administered on 08/11/18at 00:55; Start 08/11/18 at 01:30; Stop 08/11/18 at 01:31; Status DC Sodium Chloride 1,000 ml @ 1,000 mls/hr 1X ONCE IV Last administered on at 01:19; Start 08/11/18 at 01:30; Stop 08/11/18 at 02:29; Status DC Sodium Chloride 1,000 ml @ 1,000 mls/hr 1X ONCE IV Last administered on at 03:49; Start 08/11/18 at 04:00; Stop 08/11/18 at 04:59; Status DC Ceftriaxone Sodium (Rocephin) 1 gm 1X ONCE IVP Last administered on 08/11/18at 03:52; Start 08/11/18 at 04:00; Stop 08/11/18 at 04:01; Status DC Ondansetron HCl (Zofran) 4 mg PRN Q8HRS PRN IV NAUSEA/VOMITING 1ST CHOICE; Start 08/11/18 at 04:15; Stop 08/11/18 at 14:30; Status DC Sodium Chloride 1,000 ml @ 150 mls/hr Q6H40M IV Last administered on at 06:33; Start 08/11/18 at 04:30; Stop 08/12/18 at 04:29; Status DC Sodium Chloride (Normal Saline Flush 3ml) 3 ml QSHIFT PRN IV AFTER MEDS AND BLOOD DRAWS; Start 08/11/18 at 14:15 Multivitamins 10 ml/Thiamine HCl 100 mg/Folic Acid 1 mg/Sodium Chloride 1,011.2 ml @ 125 mls/ hr Q8H IV ; Start 08/11/18 at 15:00; Stop 08/11/18 at 15:00; Status DC Ondansetron HCl (Zofran) 4 mg PRN Q4HRS PRN IV NAUSEA/VOMITING; Start 08/11/18 at 14:15 Acetaminophen (Tylenol) 650 mg PRN Q4HRS PRN PO TEMP OVER 100.4F OR MILD PAIN; Start 08/11/18 at 14:15 Acetaminophen (Tylenol) 650 mg PRN Q4HRS PRN GT TEMP OVER 100.4F OR MILD PAIN; Start 08/11/18 at 14:15 Al Hydroxide/Mg Hydroxide (Mylanta Plus Xs) 30 ml PRN DAILY PRN PO HEARTBURN / GAS; Start 08/11/18 at 14:15 Clonidine HCl (Catapres) 0.1 mg PRN Q6HRS PRN PO SBP>160 OR DBP>90; Start 08/11 at 14:15 Sodium Monofluorophosphate (Fleet Adult) 133 ml PRN DAILY PRN [place] CONSTIPATION; Start 08/11/18 at 14:15 Diphenhydramine HCl (Benadryl) 25 mg PRN Q4HRS PRN IVP ITCHING; Start 08/11/18 at 14:15 Docusate Sodium (Colace) 100 mg PRN BID PRN PO CONSTIPATION USE FIRST; Start at 14:15 Albuterol Sulfate (Ventolin Neb Soln) 2.5 mg PRN Q4HRS PRN NEB SHORTNESS OF BREATH Last administered on 08/11/18at 17:20; Start 08/11/18 at 14:15 Guaifenesin (Robitussin) 200 mg PRN Q4HRS PRN PO COUGH Last administered on at 19:25; Start 08/11/18 at 14:15 Lorazepam (Ativan) 0.5 mg PRN Q4HRS PRN PO ANXIETY / AGITATION; Start 08/11/18 at 14:15 Enoxaparin Sodium (Lovenox 40mg Syringe) 40 mg Q24H SQ ; Start 08/11/18 at 15:30 Vancomycin HCl (Vanco Per Pharmacy) 1 each PRN DAILY PRN MC SEE COMMENTS; Start 08/11/18 at 14:15; Stop 08/11/18 at 14:38; Status DC Budesonide (Pulmicort) 0.5 mg RTBID NEB Last administered on 08/12/18at 08:47; Start 08/11/18 at 20:00 Methylprednisolone Sodium Succinate (SOLU-Medrol 125MG VIAL) 80 mg Q8HRS IV Last administered on 08/12/18at 06:33; Start 08/11/18 at 16:00 Montelukast Sodium (Singulair) 10 mg QHS PO Last administered on 08/11/18at 20: 24; Start 08/11/18 at 21:00 Albuterol Sulfate (Ventolin Neb Soln) 2.5 mg RTQID NEB Last administered on at 08:47; Start 08/11/18 at 20:00 Levothyroxine Sodium (Synthroid) 75 mcg DAILY06 PO Last administered on at 06:33; Start 08/12/18 at 06:00 Active Scripts Active Reported Adderall Xr 30 Mg Capsule (Dextroamphetamine/Amphetamine) 30 Mg Cap.er.24h 1 Cap PO BID Levothyroxine Sodium 75 Mcg Tablet 1 Tab PO DAILY Berthaedezla (Desvenlafaxine) 100 Mg Tab.er.24h 100 Mg PO DAILY Vitals/I & O Vital Sign - Last 24 Hours 08/11/18 08/11/18 08/11/18 08/11/18 09:00 10:00 11:00 12:00 Temp 98.8 98.8 Pulse 94 88 78 74 Resp 14 19 18 15 B/P (MAP) 139/71 (93) 108/65 (79) 116/68 (84) 107/63 (78) Pulse Ox 98 99 99 100 O2 Delivery Room Air Room Air Room Air Room Air 08/11/18 08/11/18 08/11/18 08/11/18 12:00 13:00 14:00 15:00 Pulse 86 85 82 Resp 17 12 17 B/P (MAP) 117/83 (94) 111/58 (75) 107/69 (82) Pulse Ox 98 97 98 O2 Delivery Room Air Room Air Room Air Room Air 08/11/18 08/11/18 08/11/18 08/11/18 16:00 16:00 17:00 17:23 Temp 98.6 98.6 Pulse 77 88 Resp 13 18 B/P (MAP) 111/73 (86) 113/78 (90) Pulse Ox 100 98 92 O2 Delivery Room Air Room Air Room Air Room Air 08/11/18 08/11/18 08/11/18 08/11/18 18:00 20:00 20:00 20:38 Temp 98.4 98.4 Pulse 89 92 Resp 16 24 B/P (MAP) 115/66 (82) 133/59 (83) Pulse Ox 100 99 92 O2 Delivery Room Air Room Air Room Air Room Air 08/11/18 08/11/18 08/11/18 08/11/18 20:38 21:00 22:00 23:00 Pulse 112 90 88 Resp 20 32 28 B/P (MAP) 144/58 (86) 125/67 (86) 103/56 (72) Pulse Ox 92 99 100 100 O2 Delivery Room Air Room Air Nasal Cannula Nasal Cannula O2 Flow Rate 2.0 2.0 08/12/18 08/12/18 08/12/18 08/12/18 00:00 00:01 01:00 02:00 Temp 98.6 98.6 Pulse 88 87 82 Resp 24 22 21 B/P (MAP) 96/47 (63) 119/77 (91) 106/61 (76) Pulse Ox 100 100 100 O2 Delivery Nasal Cannula Nasal Cannula Room Air Room Air O2 Flow Rate 2.0 2.0 08/12/18 08/12/18 08/12/18 08/12/18 03:00 03:43 04:00 05:00 Temp 98.6 98.6 Pulse 74 76 76 Resp 17 19 B/P (MAP) 99/56 (70) 116/68 (84) 111/64 (80) Pulse Ox 99 100 99 O2 Delivery Room Air Nasal Cannula Room Air Room Air O2 Flow Rate 2.0 08/12/18 08/12/18 08/12/18 06:00 07:00 08:47 Pulse 69 70 Resp 18 24 B/P (MAP) 106/54 (71) 117/82 (94) Pulse Ox 100 100 O2 Delivery Room Air Room Air Nasal Cannula O2 Flow Rate 2.0 Intake and Output 08/11/18 08/11/18 08/12/18 15:00 23:00 07:00 Intake Total 500 ml 1200 ml 5010 ml Balance 500 ml 1200 ml 5010 ml CHILO HERNANDEZ MD Aug 12, 2018 08:56
[2018-08-12] MEDS ORDERED: predniSONE 20 MG TABLET PO SCH (09:00)
[2018-08-12] MEDS ORDERED: NON FORMULARY ITEM (Dextroamphetamine/Amphetamine (Adderall Xr 30 Mg Capsule) 1 CAP) PO SCH (09:00)
[2018-08-12] MEDS ORDERED: DESVENLAFAXINE 100 MG PO SCH (09:00)
--- NOTE | 2018-08-12 10:35 | NUR ---
Pt arrives to unit via wheelchair accompanied by male. Pt transfers self to bed without complications. Pt A&Ox4 with non productive cough. Pt explains she benefits from breathing tx. Voice understanding. Pt c/o sore throat/sore abdominal muscles from cough. Pt laying in bed with call light in reach. Breathing tx ordered.
--- NOTE | 2018-08-12 10:46 | NUR ---
SS following for discharge planning. SS reviewed pt chart and met with pt's RN, Zulma, in ICU. 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 Pt has a diagnosis of Narcolepsy and has a prescription of Adderall. Pt's RN reported that Adderall is what caused the +Meth screen. No discharge needs noted at this time. Pt transferred to room 669. Alex WEEKS, will continue to follow for pending discharge needs.
--- NOTE | 2018-08-12 13:59 | CONS ---
DATE OF CONSULTATION: PULMONARY CONSULTATION ATTENDING PHYSICIAN: Harpreet Malone M.D. REASON FOR CONSULTATION: Persistent cough. HISTORY OF PRESENT ILLNESS: The patient is a 33-year-old female who has history of asthma. Initially, it was exercise induced, but then developed full asthma in her adult life. She presented to the hospital with a persistent cough that has been there for about a month. She says the cough is mostly dry. No fever, no chills, no chest pains. The patient has mild postnasal drainage today, but it was not bothering her before. She said she travelled to [place] in April and has been in the [place] since then. 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 She also has history of narcolepsy. She takes Adderall. She did drink alcohol and as a result had sleepiness on admission with altered mental status. I have been asked to see her for further evaluation. PAST MEDICAL HISTORY: History of narcolepsy, for which she takes Adderall. History of exercise-induced asthma and now full-blown asthma. PAST SURGICAL HISTORY: Recent surgery about a month ago at cervical spine. ALLERGIES: HYDROCODONE. MEDICATIONS: All reviewed as listed in the MRAD, including cough suppressants. She is on IV steroids, Pulmicort and albuterol nebs. REVIEW OF SYSTEMS: Twelve-point system obtained. Pertinent positives discussed in my history of present illness, otherwise noncontributory. All systems that were negative were reviewed as well. SOCIAL HISTORY: She does not smoke cigarettes. PHYSICAL EXAMINATION: VITAL SIGNS: Reviewed. Afebrile. Pulse ox 100% on room air. Blood pressure is stable. HEENT: Sclerae nonicteric. NECK: Supple. LUNGS: With clear breath sounds. No wheezing. CARDIOVASCULAR EXAMINATION: Regular rate and rhythm. ABDOMEN: Soft. EXTREMITIES: With no pitting edema. LABORATORY DATA: Labs were reviewed. White cell count 17.3, hemoglobin 12.5 and platelets are 240,000. Urine drug screen positive for meth and alcohol. BUN and creatinine normal. Lactic acid was 5.4, now 1.9. IMPRESSION: 1. Persistent nonresolving cough since her cervical spine surgery 4 weeks ago. I suspect that we may be dealing with viral pneumonitis. Chest x-ray was clear on admission. However, we would like to do a CT chest for further evaluation. She also needs a CT neck as well to make sure there is no inflammatory process in the larynx since she had the surgery on her cervical spine. 2. Narcolepsy, for which she is on Adderall. She presented with altered mental status related to consumption of alcohol. She is now fully awake. She understands the importance of not drinking alcohol with her condition of narcolepsy. 3. History of asthma, which was initially exercise induced and now suspect full-blown asthma. RECOMMENDATIONS: 1. Obtain CT neck and chest. 2. Continue present oxygen. 3. IV steroids. Monitor white cell count. The leukocytosis is likely related to steroids. 4. Continue present bronchodilators including albuterol and Pulmicort. 5. Cough suppressants. 6. Further recommendations to follow after review of the imaging studies. REBEKAH BARRIENTOS MD DR: BOLA/celestino JOB#: [id number] / [id number]
--- NOTE | 2018-08-12 15:03 | RAD ---
PQRS Compliance statement: One or more of the following individualized dose reduction techniques were utilized for this examination: 1. Automated exposure control. 2. Adjustment of the mA and/or kV according to patient size. 3. Use of iterative reconstruction technique. Indication:PERSISTENT COUGH, R/O LARYNGITIS, ABSCESS, RECENT C-SPINE SURGERY TECHNIQUE: CT of the neck soft tissue and chest without IV contrast with multiplanar reformats. COMPARISON:None FINDINGS: Limited exam due to lack of IV contrast. Visualized noncontrast sections through the brain are within normal limits. The nasopharynx, oropharynx and hypopharynx within normal limits. Epiglottis is not thickened. Trachea is patent. No enlarged deep cervical adenopathy. No fluid collection seen in the neck. The noncontrast appearance of the submandibular glands, parotid glands and thyroid are within normal limits. Status post anterior fusion at C5-C6 with disc spacer. No compression deformities. Facet joints are in normal anatomic alignment. No prevertebral soft tissue swelling or fluid collection seen. Heart is normal in size. No pericardial or pleural effusion. No enlarged axillary, mediastinal adenopathy. Evaluation of hilar lymphadenopathy is limited due to lack of IV contrast. Central airways are patent. Lungs are clear. Noncontrast appearance of the liver, spleen, gallbladder, pancreas, adrenals and kidneys within normal limits. No suspicious bony lesion. IMPRESSION: Limited exam due to lack of IV contrast. No apparent acute findings in the neck or chest. Electronically signed by: Khalif Crenshaw DO (08/12/2018 3:01 PM) [facility]
[2018-08-12] MEDS: ENOXAPARIN 40 MG/0.4 ML SYRINGE. SQ SCH (15:59)
[2018-08-12] MEDS: MONTELUKAST SODIUM 10 MG TABLET. PO SCH (21:27)
[2018-08-12] MEDS: ALBUTEROL SULFATE 2.5 MG/3 ML NEBU. NEB PRN (23:40)
[2018-08-13 03:25] VITALS: BP 121/58
[2018-08-13] MEDS: guaiFENesin ORAL 200 MG/10 ML LIQUID. PO PRN ×4 (04:22→22:02)
[2018-08-13] MEDS: ALBUTEROL SULFATE 2.5 MG/3 ML NEBU. NEB PRN (04:33)
[2018-08-13] MEDS: LEVOTHYROXINE 75 MCG TABLET PO SCH (06:16)
[2018-08-13] MEDS: methylPREDNISolone SOD SUCC PF 125 MG/2 ML VIAL. IV SCH ×3 (06:17→21:55)
[2018-08-13] MEDS: guaiFENesin/CODEINE 100mg/10mg 5 ML LIQUID PO PRN ×4 (06:46→20:02)
[2018-08-13 07:00] VITALS: BP 111/59
--- NOTE | 2018-08-13 07:57 | PDOC ---
PROGRESS NOTES Chief Complaint Chief Complaint Altered mental status Elevated ETOH level Spurious elevation lactic acid level resolved ALCOHOL TOXICITY HX NARCOLEPSY uti LEUKOCYTOSIS which may be reactive most likely given the lack of infectious process evident ASTHMA EXAC, acute has persistent cough// moderate persistent asthma symptoms x 2 yrs Plan Downgraded to medical floor Started codeine Pulmonology evaluation - steroids, taper down, nebs ENT consultation in the outpatient setting is scheduled for Sunday History of Present Illness History of Present Illness Patient with history of a recent cervical fusion and subsequently developing a persistent cough that sounds like a crup type of cough. Patient denies fever no weight loss or lymphadenopathy was reported. Patient denies reflux disease no postnasal drip reported either. Patient refers chest discomfort as a consequence of her coughing effort. No other complaints no sick contacts. Plan of care explained in detail She is incrementally better today. Feels the nebs helped significantly. Wants to increase frequency of codeine cough syrup. I advised against this. Denies CP. Has some nausea and MENDOZA. Did not sleep until 6:30 am Plan: Trazodone for sleep tonight. Cont aggressive nebs Vitals Vitals Vital Signs Date Time Temp Pulse Resp B/P (MAP) Pulse Ox O2 Delivery O2 Flow Rate FiO2 08/13/18 04:33 Room Air 08/13/18 03:25 98.9 104 18 121/58 (79) 97 98.9 08/12/18 20:00 2.0 Physical Exam General: Alert, Oriented X3, Cooperative, mild distress Lungs: Clear Abdomen: Normal bowel sounds, Soft, No tenderness Extremities: No clubbing, No cyanosis Skin: No significant lesion Comment Review of Relevant I have reviewed the following items alejandrina (where applicable) has been applied. Labs Laboratory Tests Test 08/11/18 14:45 08/12/18 04:30 08/12/18 04:35 Troponin I Quantitative < 0.017 ng/mL (0.000-0.055) Sodium Level 141 mmol/L (136-145) Potassium Level 3.8 mmol/L (3.5-5.1) Chloride Level 105 mmol/L (98-107) Carbon Dioxide Level 24 mmol/L (21-32) Anion Gap 12 (6-14) Blood Urea Nitrogen 8 mg/dL (7-20) Creatinine 0.5 mg/dL (0.6-1.0) Estimated GFR (Cockcroft-Gault) 142.1 BUN/Creatinine Ratio 16 (6-20) Glucose Level 148 mg/dL (70-99) Calcium Level 8.4 mg/dL (8.5-10.1) Total Bilirubin 0.4 mg/dL (0.2-1.0) Aspartate Amino Transf (AST/SGOT) 21 U/L (15-37) Alanine Aminotransferase (ALT/SGPT) 27 U/L (14-59) Alkaline Phosphatase 49 U/L (46-116) Total Protein 6.9 g/dL (6.4-8.2) Albumin 3.3 g/dL (3.4-5.0) Albumin/Globulin Ratio 0.9 (1.0-1.7) White Blood Count 17.3 x10^3/uL (4.0-11.0) Red Blood Count 4.26 x10^6/uL (3.50-5.40) Hemoglobin 12.5 g/dL (12.0-15.5) Hematocrit 38.0 % (36.0-47.0) Mean Corpuscular Volume 89 fL (79-100) Mean Corpuscular Hemoglobin 30 pg (25-35) Mean Corpuscular Hemoglobin Concent 33 g/dL (31-37) Red Cell Distribution Width 14.1 % (11.5-14.5) Platelet Count 240 x10^3/uL (140-400) Neutrophils (%) (Auto) 94 % (31-73) Lymphocytes (%) (Auto) 5 % (24-48) Monocytes (%) (Auto) 2 % (0-9) Eosinophils (%) (Auto) 0 % (0-3) Basophils (%) (Auto) 0 % (0-3) Neutrophils # (Auto) 16.2 x10^3uL (1.8-7.7) Lymphocytes # (Auto) 0.8 x10^3/uL (1.0-4.8) Monocytes # (Auto) 0.3 x10^3/uL (0.0-1.1) Eosinophils # (Auto) 0.0 x10^3/uL (0.0-0.7) Basophils # (Auto) 0.0 x10^3/uL (0.0-0.2) Segmented Neutrophils % 89 % (35-66) Band Neutrophils % 3 % (0-9) Lymphocytes % 8 % (24-48) Platelet Estimate Adequate (ADEQUATE) Microbiology 08/11/18 Blood Culture - Preliminary, Resulted NO GROWTH AFTER 2 DAYS Medications Current Medications Naloxone HCl (Narcan) 2 mg 1X ONCE IV Last administered on 08/11/18at 00:55; Start 08/11/18 at 01:30; Stop 08/11/18 at 01:31; Status DC Sodium Chloride 1,000 ml @ 1,000 mls/hr 1X ONCE IV Last administered on at 01:19; Start 08/11/18 at 01:30; Stop 08/11/18 at 02:29; Status DC Sodium Chloride 1,000 ml @ 1,000 mls/hr 1X ONCE IV Last administered on at 03:49; Start 08/11/18 at 04:00; Stop 08/11/18 at 04:59; Status DC Ceftriaxone Sodium (Rocephin) 1 gm 1X ONCE IVP Last administered on 08/11/18at 03:52; Start 08/11/18 at 04:00; Stop 08/11/18 at 04:01; Status DC Ondansetron HCl (Zofran) 4 mg PRN Q8HRS PRN IV NAUSEA/VOMITING 1ST CHOICE; Start 08/11/18 at 04:15; Stop 08/11/18 at 14:30; Status DC Sodium Chloride 1,000 ml @ 150 mls/hr Q6H40M IV Last administered on at 06:33; Start 08/11/18 at 04:30; Stop 08/12/18 at 04:29; Status DC Sodium Chloride (Normal Saline Flush 3ml) 3 ml QSHIFT PRN IV AFTER MEDS AND BLOOD DRAWS; Start 08/11/18 at 14:15 Multivitamins 10 ml/Thiamine HCl 100 mg/Folic Acid 1 mg/Sodium Chloride 1,011.2 ml @ 125 mls/ hr Q8H IV ; Start 08/11/18 at 15:00; Stop 08/11/18 at 15:00; Status DC Ondansetron HCl (Zofran) 4 mg PRN Q4HRS PRN IV NAUSEA/VOMITING; Start 08/11/18 at 14:15 Acetaminophen (Tylenol) 650 mg PRN Q4HRS PRN PO TEMP OVER 100.4F OR MILD PAIN; Start 08/11/18 at 14:15 Acetaminophen (Tylenol) 650 mg PRN Q4HRS PRN GT TEMP OVER 100.4F OR MILD PAIN; Start 08/11/18 at 14:15 Al Hydroxide/Mg Hydroxide (Mylanta Plus Xs) 30 ml PRN DAILY PRN PO HEARTBURN / GAS; Start 08/11/18 at 14:15 Clonidine HCl (Catapres) 0.1 mg PRN Q6HRS PRN PO SBP>160 OR DBP>90; Start 08/11 at 14:15 Sodium Monofluorophosphate (Fleet Adult) 133 ml PRN DAILY PRN [place] CONSTIPATION; Start 08/11/18 at 14:15 Diphenhydramine HCl (Benadryl) 25 mg PRN Q4HRS PRN IVP ITCHING; Start 08/11/18 at 14:15 Docusate Sodium (Colace) 100 mg PRN BID PRN PO CONSTIPATION USE FIRST; Start at 14:15 Albuterol Sulfate (Ventolin Neb Soln) 2.5 mg PRN Q4HRS PRN NEB SHORTNESS OF BREATH Last administered on 08/13/18at 04:33; Start 08/11/18 at 14:15 Guaifenesin (Robitussin) 200 mg PRN Q4HRS PRN PO COUGH Last administered on at 04:22; Start 08/11/18 at 14:15 Lorazepam (Ativan) 0.5 mg PRN Q4HRS PRN PO ANXIETY / AGITATION; Start 08/11/18 at 14:15 Enoxaparin Sodium (Lovenox 40mg Syringe) 40 mg Q24H SQ Last administered on at 15:59; Start 08/11/18 at 15:30 Vancomycin HCl (Vanco Per Pharmacy) 1 each PRN DAILY PRN [facility] SEE COMMENTS; Start 08/11/18 at 14:15; Stop 08/11/18 at 14:38; Status DC Budesonide (Pulmicort) 0.5 mg RTBID NEB Last administered on 08/12/18at 19:24; Start 08/11/18 at 20:00 Methylprednisolone Sodium Succinate (SOLU-Medrol 125MG VIAL) 80 mg Q8HRS IV Last administered on 08/13/18at 06:17; Start 08/11/18 at 16:00 Montelukast Sodium (Singulair) 10 mg QHS PO Last administered on 08/12/18at 21: 27; Start 08/11/18 at 21:00 Albuterol Sulfate (Ventolin Neb Soln) 2.5 mg RTQID NEB Last administered on at 19:24; Start 08/11/18 at 20:00 Levothyroxine Sodium (Synthroid) 75 mcg DAILY06 PO Last administered on at 06:16; Start 08/12/18 at 06:00 Non-Formulary Medication (Desvenlafaxine (Khedezla)) 100 mg DAILY PO ; Start at 09:00; Stop 08/12/18 at 20:37; Status DC Non-Formulary Medication (Dextroamphetamine/ Amphetamine (Adderall Xr 30 Mg Capsule)) 1 cap BID PO ; Start 08/12/18 at 09:00; Stop 08/12/18 at 20:37; Status DC Guaifenesin/ Codeine Phosphate (Robitussin Ac) 5 ml PRN Q6HRS PRN PO COUGH 2ND CHOICE Last administered on 08/13/18at 06:46; Start 08/12/18 at 09:00 Prednisone (Prednisone) 40 mg DAILY PO ; Start 08/12/18 at 09:00; Stop 08/12/18 at 09:00; Status DC Desvenlafaxine Succinate (Pristiq Er) 100 mg DAILY PO ; Start 08/13/18 at 09:00 Active Scripts Active Reported Adderall Xr 30 Mg Capsule (Dextroamphetamine/Amphetamine) 30 Mg Cap.er.24h 1 Cap PO BID Levothyroxine Sodium 75 Mcg Tablet 1 Tab PO DAILY Khedezla (Desvenlafaxine) 100 Mg Tab.er.24h 100 Mg PO DAILY Vitals/I & O Vital Sign - Last 24 Hours 08/12/18 08/12/18 08/12/18 08/12/18 08:00 08:47 10:35 10:50 Pulse 87 Resp 30 B/P (MAP) 113/57 (75) Pulse Ox 100 O2 Delivery Room Air Nasal Cannula Room Air Room Air O2 Flow Rate 2.0 3/08/12/18 08/12/18 08/12/18 11:00 15:00 16:29 19:26 Temp 98.8 98.8 Pulse 85 Resp 24 B/P (MAP) 130/73 (92) Pulse Ox 100 99 O2 Delivery Room Air Room Air Room Air Room Air 08/12/18 08/12/18 08/12/18 08/12/18 19:53 20:00 23:12 23:40 Temp 99.0 99.0 99.0 99.0 Pulse 121 96 Resp 20 20 B/P (MAP) 128/76 (93) 130/69 (89) Pulse Ox 98 99 O2 Delivery Room Air Mask Room Air Room Air O2 Flow Rate 2.0 08/13/18 08/13/18 03:25 04:33 Temp 98.9 98.9 Pulse 104 Resp 18 B/P (MAP) 121/58 (79) Pulse Ox 97 O2 Delivery Room Air Room Air Intake and Output 08/12/18 08/12/18 08/13/18 15:00 23:00 07:00 Intake Total 360 ml 500 ml 2850 ml Balance 360 ml 500 ml [address] Neck - Limited exam due to lack of IV contrast. No apparent acute findings in the neck or chest. CAMRYN MERRILL MD Aug 13, 2018 07:57
[2018-08-13] MEDS: ALBUTEROL SULFATE 2.5 MG/3 ML NEBU. NEB SCH ×4 (08:03→20:06)
[2018-08-13] MEDS: BUDESONIDE 0.5 MG/2 ML NEBU. NEB SCH ×2 (08:03→20:06)
[2018-08-13] MEDS: DESVENLAFAXINE 25 MG TAB.ER.24H PO SCH (09:46)
--- NOTE | 2018-08-13 10:22 | PDOC ---
PULMONARY PROGRESS NOTES Subjective less cough no soa Vitals Vital Signs Date Time Temp Pulse Resp B/P (MAP) Pulse Ox O2 Delivery O2 Flow Rate FiO2 08/13/18 08:04 98 Room Air 08/13/18 07:00 98.0 98 16 111/59 (76) 98.0 08/12/18 20:00 2.0 General: Alert, No acute distress Lungs: Clear Cardiovascular: S1 Abdomen: Soft Neuro Exam: Alert Extremities: No Edema Skin: Warm Labs Laboratory Tests Test 08/11/18 14:45 08/12/18 04:30 08/12/18 04:35 Troponin I Quantitative < 0.017 ng/mL (0.000-0.055) Sodium Level 141 mmol/L (136-145) Potassium Level 3.8 mmol/L (3.5-5.1) Chloride Level 105 mmol/L (98-107) Carbon Dioxide Level 24 mmol/L (21-32) Anion Gap 12 (6-14) Blood Urea Nitrogen 8 mg/dL (7-20) Creatinine 0.5 mg/dL (0.6-1.0) Estimated GFR (Cockcroft-Gault) 142.1 BUN/Creatinine Ratio 16 (6-20) Glucose Level 148 mg/dL (70-99) Calcium Level 8.4 mg/dL (8.5-10.1) Total Bilirubin 0.4 mg/dL (0.2-1.0) Aspartate Amino Transf (AST/SGOT) 21 U/L (15-37) Alanine Aminotransferase (ALT/SGPT) 27 U/L (14-59) Alkaline Phosphatase 49 U/L (46-116) Total Protein 6.9 g/dL (6.4-8.2) Albumin 3.3 g/dL (3.4-5.0) Albumin/Globulin Ratio 0.9 (1.0-1.7) White Blood Count 17.3 x10^3/uL (4.0-11.0) Red Blood Count 4.26 x10^6/uL (3.50-5.40) Hemoglobin 12.5 g/dL (12.0-15.5) Hematocrit 38.0 % (36.0-47.0) Mean Corpuscular Volume 89 fL (79-100) Mean Corpuscular Hemoglobin 30 pg (25-35) Mean Corpuscular Hemoglobin Concent 33 g/dL (31-37) Red Cell Distribution Width 14.1 % (11.5-14.5) Platelet Count 240 x10^3/uL (140-400) Neutrophils (%) (Auto) 94 % (31-73) Lymphocytes (%) (Auto) 5 % (24-48) Monocytes (%) (Auto) 2 % (0-9) Eosinophils (%) (Auto) 0 % (0-3) Basophils (%) (Auto) 0 % (0-3) Neutrophils # (Auto) 16.2 x10^3uL (1.8-7.7) Lymphocytes # (Auto) 0.8 x10^3/uL (1.0-4.8) Monocytes # (Auto) 0.3 x10^3/uL (0.0-1.1) Eosinophils # (Auto) 0.0 x10^3/uL (0.0-0.7) Basophils # (Auto) 0.0 x10^3/uL (0.0-0.2) Segmented Neutrophils % 89 % (35-66) Band Neutrophils % 3 % (0-9) Lymphocytes % 8 % (24-48) Platelet Estimate Adequate (ADEQUATE) Medications Active Scripts Medications Dose Route/Sig Max Daily Dose Days Date Category Adderall Xr 30 Mg Capsule (Dextroamphetamine/Amphetamine) 30 Mg Cap.er.24h 1 Cap PO BID 08/11/18 Reported Levothyroxine Sodium 75 Mcg Tablet 1 Tab PO DAILY 08/11/18 Reported Khedezla (Desvenlafaxine) 100 Mg Tab.er.24h 100 Mg PO DAILY 08/11/18 Reported Impression . 1. Persistent nonresolving cough since her cervical spine surgery 4 weeks ago. I suspect that we may be dealing with viral pneumonitis. Chest x-ray was clear on admission. 2. Narcolepsy, for which she is on Adderall. She presented with altered mental status related to consumption of alcohol. She is now fully awake. She understands the importance of not drinking alcohol with her condition of narcolepsy. 3. History of asthma, which was initially exercise induced and now suspect full-blown asthma. Plan . 1. Neg CT neck and chest. 2. Continue present oxygen. 3. IV steroids. Monitor white cell count. The leukocytosis is likely related to steroids. 4. Continue present bronchodilators including albuterol and Pulmicort. 5. Cough suppressants. 6. mild improvement clinically REBEKAH BARRIENTOS MD Aug 13, 2018 10:22
[2018-08-13 10:48] VITALS: BP 111/63
[2018-08-13 15:00] VITALS: BP 123/58
[2018-08-13] MEDS: ENOXAPARIN 40 MG/0.4 ML SYRINGE. SQ SCH (15:30)
[2018-08-13] MEDS ORDERED: traZODone 50 MG TABLET. PO PRN (16:15)
--- NOTE | 2018-08-13 18:10 | NUR ---
Patient reports feeling better, still has barking cough, no complaints of pain.She was able to ambulate around the room and had a shower this morning. Patient's boyfriend at bedside; will continue to monitor.
[2018-08-13 19:49] VITALS: BP 119/86
[2018-08-13] MEDS: MONTELUKAST SODIUM 10 MG TABLET. PO SCH (20:02)
[2018-08-13 23:27] VITALS: BP 124/74
[2018-08-14] MEDS: ALBUTEROL SULFATE 2.5 MG/3 ML NEBU. NEB PRN (01:53)
[2018-08-14] MEDS: guaiFENesin/CODEINE 100mg/10mg 5 ML LIQUID PO PRN ×2 (02:10→09:56)
[2018-08-14 03:13] VITALS: BP 109/51
[2018-08-14] MEDS: guaiFENesin ORAL 200 MG/10 ML LIQUID. PO PRN (05:55)
[2018-08-14] MEDS: methylPREDNISolone SOD SUCC PF 125 MG/2 ML VIAL. IV SCH (05:55)
[2018-08-14] MEDS: LEVOTHYROXINE 75 MCG TABLET PO SCH (05:56)
[2018-08-14] MEDS: BUDESONIDE 0.5 MG/2 ML NEBU. NEB SCH (06:58)
[2018-08-14] MEDS: ALBUTEROL SULFATE 2.5 MG/3 ML NEBU. NEB SCH ×2 (06:58→11:40)
[2018-08-14 07:00] VITALS: BP 122/58
--- NOTE | 2018-08-14 07:07 | PDOC ---
PROGRESS NOTES Chief Complaint Chief Complaint Altered mental status Elevated ETOH level Spurious elevation lactic acid level resolved ALCOHOL TOXICITY HX NARCOLEPSY uti LEUKOCYTOSIS which may be reactive most likely given the lack of infectious process evident ASTHMA EXAC, acute has persistent cough// moderate persistent asthma symptoms x 2 yrs Plan Downgraded to medical floor Started codeine Pulmonology evaluation - steroids, taper down, nebs ENT consultation in the outpatient setting is scheduled for Sunday History of Present Illness History of Present Illness Patient with history of a recent cervical fusion and subsequently developing a persistent cough that sounds like a crup type of cough. Patient denies fever no weight loss or lymphadenopathy was reported. Patient denies reflux disease no postnasal drip reported either. Patient refers chest discomfort as a consequence of her coughing effort. No other complaints no sick contacts. Plan of care explained in detail 08/13: She is incrementally better today. Feels the nebs helped significantly. Wants to increase frequency of codeine cough syrup. I advised against this. Denies CP. Has some nausea and MENDOZA. Did not sleep until 6:30 am Seen bedside today off O2 and off nebs, breathing fine. Still with some cough. Her significant other is meditating over her and continues to ask staff to leave the room. 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 I have advised she was positive for ethanol and this is not recommended Plan: Ok for discharge if ok with pulm with home nebulizers vs symbicort based on costs Vitals Vitals Vital Signs Date Time Temp Pulse Resp B/P (MAP) Pulse Ox O2 Delivery O2 Flow Rate FiO2 08/14/18 07:00 99 AP NEB 8.0 08/14/18 03:13 98.1 89 18 109/51 (70) 98.1 Physical Exam General: Alert, Oriented X3, Cooperative, mild distress Lungs: Clear Abdomen: Normal bowel sounds, Soft, No tenderness Extremities: No clubbing, No cyanosis Skin: No significant lesion Comment Review of Relevant I have reviewed the following items alejandrina (where applicable) has been applied. Labs Microbiology 08/11/18 Blood Culture - Preliminary, Resulted NO GROWTH AFTER 3 DAYS Medications Current Medications Naloxone HCl (Narcan) 2 mg 1X ONCE IV Last administered on 08/11/18at 00:55; Start 08/11/18 at 01:30; Stop 08/11/18 at 01:31; Status DC Sodium Chloride 1,000 ml @ 1,000 mls/hr 1X ONCE IV Last administered on at 01:19; Start 08/11/18 at 01:30; Stop 08/11/18 at 02:29; Status DC Sodium Chloride 1,000 ml @ 1,000 mls/hr 1X ONCE IV Last administered on at 03:49; Start 08/11/18 at 04:00; Stop 08/11/18 at 04:59; Status DC Ceftriaxone Sodium (Rocephin) 1 gm 1X ONCE IVP Last administered on 08/11/18at 03:52; Start 08/11/18 at 04:00; Stop 08/11/18 at 04:01; Status DC Ondansetron HCl (Zofran) 4 mg PRN Q8HRS PRN IV NAUSEA/VOMITING 1ST CHOICE; Start 08/11/18 at 04:15; Stop 08/11/18 at 14:30; Status DC Sodium Chloride 1,000 ml @ 150 mls/hr Q6H40M IV Last administered on at 06:33; Start 08/11/18 at 04:30; Stop 08/12/18 at 04:29; Status DC Sodium Chloride (Normal Saline Flush 3ml) 3 ml QSHIFT PRN IV AFTER MEDS AND BLOOD DRAWS; Start 08/11/18 at 14:15 Multivitamins 10 ml/Thiamine HCl 100 mg/Folic Acid 1 mg/Sodium Chloride 1,011.2 ml @ 125 mls/ hr Q8H IV ; Start 08/11/18 at 15:00; Stop 08/11/18 at 15:00; Status DC Ondansetron HCl (Zofran) 4 mg PRN Q4HRS PRN IV NAUSEA/VOMITING; Start 08/11/18 at 14:15 Acetaminophen (Tylenol) 650 mg PRN Q4HRS PRN PO TEMP OVER 100.4F OR MILD PAIN; Start 08/11/18 at 14:15 Acetaminophen (Tylenol) 650 mg PRN Q4HRS PRN GT TEMP OVER 100.4F OR MILD PAIN; Start 08/11/18 at 14:15 Al Hydroxide/Mg Hydroxide (Mylanta Plus Xs) 30 ml PRN DAILY PRN PO HEARTBURN / GAS; Start 08/11/18 at 14:15 Clonidine HCl (Catapres) 0.1 mg PRN Q6HRS PRN PO SBP>160 OR DBP>90; Start 08/11 at 14:15 Sodium Monofluorophosphate (Fleet Adult) 133 ml PRN DAILY PRN [place] CONSTIPATION; Start 08/11/18 at 14:15 Diphenhydramine HCl (Benadryl) 25 mg PRN Q4HRS PRN IVP ITCHING; Start 08/11/18 at 14:15 Docusate Sodium (Colace) 100 mg PRN BID PRN PO CONSTIPATION USE FIRST; Start at 14:15 Albuterol Sulfate (Ventolin Neb Soln) 2.5 mg PRN Q4HRS PRN NEB SHORTNESS OF BREATH Last administered on 08/14/18at 01:53; Start 08/11/18 at 14:15 Guaifenesin (Robitussin) 200 mg PRN Q4HRS PRN PO COUGH Last administered on at 05:55; Start 08/11/18 at 14:15 Lorazepam (Ativan) 0.5 mg PRN Q4HRS PRN PO ANXIETY / AGITATION Last administered on 08/13/18at 21:54; Start 08/11/18 at 14:15 Enoxaparin Sodium (Lovenox 40mg Syringe) 40 mg Q24H SQ Last administered on at 15:59; Start 08/11/18 at 15:30 Vancomycin HCl (Vanco Per Pharmacy) 1 each PRN DAILY PRN [facility] SEE COMMENTS; Start 08/11/18 at 14:15; Stop 08/11/18 at 14:38; Status DC Budesonide (Pulmicort) 0.5 mg RTBID NEB Last administered on 08/14/18at 06:58; Start 08/11/18 at 20:00 Methylprednisolone Sodium Succinate (SOLU-Medrol 125MG VIAL) 80 mg Q8HRS IV Last administered on 08/14/18at 05:55; Start 08/11/18 at 16:00 Montelukast Sodium (Singulair) 10 mg QHS PO Last administered on 08/13/18at 20: 02; Start 08/11/18 at 21:00 Albuterol Sulfate (Ventolin Neb Soln) 2.5 mg RTQID NEB Last administered on at 06:58; Start 08/11/18 at 20:00 Levothyroxine Sodium (Synthroid) 75 mcg DAILY06 PO Last administered on at 05:56; Start 08/12/18 at 06:00 Non-Formulary Medication (Desvenlafaxine (Khedezla)) 100 mg DAILY PO ; Start at 09:00; Stop 08/12/18 at 20:37; Status DC Non-Formulary Medication (Dextroamphetamine/ Amphetamine (Adderall Xr 30 Mg Capsule)) 1 cap BID PO ; Start 08/12/18 at 09:00; Stop 08/12/18 at 20:37; Status DC Guaifenesin/ Codeine Phosphate (Robitussin Ac) 5 ml PRN Q6HRS PRN PO COUGH 2ND CHOICE Last administered on 08/14/18at 02:10; Start 08/12/18 at 09:00 Prednisone (Prednisone) 40 mg DAILY PO ; Start 08/12/18 at 09:00; Stop 08/12/18 at 09:00; Status DC Desvenlafaxine Succinate (Pristiq Er) 100 mg DAILY PO Last administered on 08/13at 09:46; Start 08/13/18 at 09:00 Trazodone HCl (Desyrel) 50 mg PRN QHS PRN PO INSOMNIA; Start 08/13/18 at 16:15 Active Scripts Active Reported Adderall Xr 30 Mg Capsule (Dextroamphetamine/Amphetamine) 30 Mg Cap.er.24h 1 Cap PO BID Levothyroxine Sodium 75 Mcg Tablet 1 Tab PO DAILY Khedezla (Desvenlafaxine) 100 Mg Tab.er.24h 100 Mg PO DAILY Vitals/I & O Vital Sign - Last 24 Hours 08/13/18 08/13/18 08/13/18 08/13/18 08:00 08:04 10:48 12:07 Temp 98.1 98.1 Pulse 88 Resp 18 B/P (MAP) 111/63 (79) Pulse Ox 98 99 O2 Delivery Room Air Room Air Room Air Room Air 08/13/18 08/13/18 08/13/18 08/13/18 15:00 16:22 19:49 20:00 Temp 98.4 98.4 Pulse 85 118 Resp 18 24 B/P (MAP) 123/58 (79) 119/86 (97) Pulse Ox 98 100 O2 Delivery Room Air Room Air NonRebreather Mask Room Air O2 Flow Rate 7.0 7.0 08/13/18 08/13/18 08/14/18 08/14/18 20:07 23:27 01:52 03:13 Temp 98.7 98.1 98.7 98.1 Pulse 80 89 Resp 20 18 B/P (MAP) 124/74 (91) 109/51 (70) Pulse Ox 99 98 97 O2 Delivery Room Air Room Air AP NEB Room Air O2 Flow Rate 8.0 08/14/18 07:00 Pulse Ox 99 O2 Delivery AP NEB O2 Flow Rate 8.0 Intake and Output 08/13/18 08/13/18 08/14/18 15:00 23:00 07:00 Intake Total 1200 ml Balance 1200 ml CAMRYN MERRILL MD Aug 14, 2018 07:07
[2018-08-14] MEDS ORDERED: BUDE0.5A NEB (09:20)
[2018-08-14] MEDS ORDERED: guaiFENesin/CODEINE 100mg/10mg PO (09:20)
[2018-08-14] MEDS ORDERED: PRED20TA PO (09:20)
[2018-08-14] MEDS ORDERED: MONT10TA9 PO (09:20)
[2018-08-14] MEDS ORDERED: IPRA3AMP29 NEB (09:20)
[2018-08-14] MEDS ORDERED: predniSONE 20 MG TABLET PO SCH (09:30)
[2018-08-14] MEDS: DESVENLAFAXINE 25 MG TAB.ER.24H PO SCH (09:57)
--- NOTE | 2018-08-14 11:26 | PDOC ---
PULMONARY PROGRESS NOTES Subjective slowly improving cough Vitals Vital Signs Date Time Temp Pulse Resp B/P (MAP) Pulse Ox O2 Delivery O2 Flow Rate FiO2 08/14/18 08:00 Room Air 8.0 08/14/18 07:00 99 08/14/18 07:00 97.6 103 20 122/58 (79) 97.6 General: Alert, No acute distress Lungs: Clear Cardiovascular: S1 Abdomen: Soft Neuro Exam: Alert Extremities: No Edema Skin: Warm Medications Active Scripts Medications Dose Route/Sig Max Daily Dose Days Date Category Adderall Xr 30 Mg Capsule (Dextroamphetamine/Amphetamine) 30 Mg Cap.er.24h 1 Cap PO BID 08/11/18 Reported Levothyroxine Sodium 75 Mcg Tablet 1 Tab PO DAILY 08/11/18 Reported Khedezla (Desvenlafaxine) 100 Mg Tab.er.24h 100 Mg PO DAILY 08/11/18 Reported Impression . 1. Persistent nonresolving cough since her cervical spine surgery 4 weeks ago. I suspect that we may be dealing with viral pneumonitis. Chest x-ray was clear on admission. cough slowly improving 2. Narcolepsy, for which she is on Adderall. She presented with altered mental status related to consumption of alcohol. She is now fully awake. She understands the importance of not drinking alcohol with her condition of narcolepsy. 3. History of asthma, which was initially exercise induced and now suspect full-blown asthma. Plan . 1. Neg CT neck and chest. 2. off oxygen. 3. change to PO steroids. 4. Continue present bronchodilators including albuterol and Pulmicort. 5. Cough suppressants. 6. improvement clinically/ OK WITH DC HOME. WILL USE SYMBICORT AT HOME REBEKAH BARRIENTOS MD Aug 14, 2018 11:26
[2018-08-14] MEDS ORDERED: BUDE10.2 IH (13:51)
--- NOTE | 2018-08-14 14:07 | NUR ---
Pt discharged to home with boyfriend. Discussed discharge instructions such as diet, activity, medications and follow up. Verbalized understanding.
--- NOTE | 2018-08-14 15:48 | PDOC3 ---
Discharge Summary Visit Information Date of Admission: Aug 11, 2018 Date of Discharge: Aug 14, 2018 Admitting Diagnosis: Acute encephalopathy, Acute bronchitis, Lactic acidosis Final Diagnosis Acute bronchitis Brief Hospital Course Allergies Allergies Coded Allergies Type Severity Reaction Last Updated Verified hydrocodone Allergy Mild irritable 08/11/18 Yes Vital Signs Vital Signs Date Time Temp Pulse Resp B/P (MAP) Pulse Ox O2 Delivery O2 Flow Rate FiO2 08/14/18 11:40 98 Room Air 08/14/18 08:00 8.0 08/14/18 07:00 97.6 103 20 122/58 (79) 97.6 Brief Hospital Course Ms. Meza is a 33-year-old female who has history of asthma and a recent cervical fusion. Developed full asthma in her adult life. She presented to the hospital with acute encephalopathy, notably did drink alcohol and as a result had sleepiness on admission with altered mental status and also a persistent cough that has been there for about a month. She says the cough is mostly dry. No fever, no chills, no chest pains. The patient has mild postnasal drainage today, but it was not bothering her before. She said she travelled to [place] in April and has been in the [place] since then. 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 She also has history of narcolepsy. She takes Adderall. Seen by pulmonology for her persistent cough and bronchitis. Started codeine Pulmonology evaluation - steroids, taper down, nebs ENT consultation in the outpatient setting is scheduled for Sunday Problems: Altered mental status Elevated ETOH level elevation lactic acid level resolved ALCOHOL TOXICITY HX NARCOLEPSY LEUKOCYTOSIS which may be reactive most likely given the lack of infectious process evident ASTHMA EXAC, acute has persistent cough// moderate persistent asthma symptoms x 2 yrs Greater than 30 minutes spent on discharge including counseling Discharge Information Condition at Discharge: Improved Follow Up: Weeks (2) Disposition/Orders: D/C to Home Scheduled Budesonide (Budesonide) 0.5 Mg/2 Ml Ampul.neb, 0.5 MG NEB RTBID for bronchitis for 30 Days, #60 Prescribed by: CAMRYN MERRILL MD on 08/14/18 0920 Budesonide/Formoterol Fumarate (Symbicort 160-4.5 Mcg Inhaler) 10.2 Gm Hfa.aer.ad, 2 PUFF IH BID for asthma, #10.6 Ref 3 (Reported) Entered as Reported by: NINSOKA WOOD on 08/14/18 1351 Desvenlafaxine (Khedezla) 100 Mg Tab.er.24h, 100 MG PO DAILY for "to stay awake ", (Reported) Entered as Reported by: Cezar Schmidt on 08/11/18552 Last Taken: Unknown Dose on 08/10/18 Last Action: Converted on 08/12/18852 by CHILO HERNANDEZ MD Dextroamphetamine/Amphetamine (Adderall Xr 30 Mg Capsule) 30 Mg Cap.er.24h, 1 CAP PO BID for Narcolepsy, #30 (Reported) Entered as Reported by: Cezar Schmidt on 08/11/18553 Last Action: Converted on 08/12/18852 by CHILO HERNANDEZ MD Ipratropium/Albuterol Sulfate (Duoneb 0.5-3(2.5) Mg/3 Ml) 3 Ml Ampul.neb, 3 ML NEB QID for bronchitis for 30 Days, #120 Prescribed by: CAMRYN MERRILL MD on 08/14/18919 Levothyroxine Sodium (Levothyroxine Sodium) 75 Mcg Tablet, 1 TAB PO DAILY for hypothyroid, #30 Ref 5 (Reported) Entered as Reported by: Cezar Schmidt on 08/11/18553 Last Action: Continued on 08/11/182158 by JAXSON VIGIL Montelukast Sodium (Montelukast Sodium Tablet) 10 Mg Tablet, 10 MG PO QHS for allergic rhinitis for 30 Days, #30 Prescribed by: CAMRYN MERRILL MD on 08/14/18919 Prednisone (Prednisone) 20 Mg Tablet, 1 TAB PO DAILY for bronchitis for 5 Days, #5 Prescribed by: CAMRYN MERRILL MD on 08/14/1820 Scheduled PRN [guaiFENesin/CODEINE 100mg/10mg] 5 ML LIQUID, 5 ML PO PRN Q6HRS PRN for COUGH 2ND CHOICE for 10 Days, #120 Prescribed by: CAMRYN MERRILL MD on 08/14/18919 CAMRYN MERRILL MD Aug 14, 2018 15:48
== END 2018-08-14 14:07 | disposition home or self-care (01) | DRG 871 ==
LOC: ER 00:44 → 1 WEST ICU 04:04 → 6 SOUTH 08-12 10:30
PROVIDERS: ADMIT Internal Medicine; ATTEND Internal Medicine
DX: A41.9 Sepsis, unspecified organism (principal); G93.41 Metabolic encephalopathy; N39.0 Urinary tract infection, site not specified; E87.2 Acidosis; J45.41 Moderate persistent asthma with (acute) exacerbation; J20.9 Acute bronchitis, unspecified; G47.419 Narcolepsy without cataplexy; Z82.49 Family history of ischemic heart disease and other diseases of the circulatory system; F10.10 Alcohol abuse, uncomplicated; T51.91XA Toxic effect of unspecified alcohol, accidental (unintentional), initial encounter; Y92.89 Other specified places as the place of occurrence of the external cause
CPT/HCPCS: 36415; 70450; 70490; 71045; 71250; 80053; 80307; 81001; 81025; 82140; 82962; 83605; 83735; 83880; 84484; 84702; 85007; 85025; 85610; 87040; 87641; 93005; 94640; 94760; 96360; 96361; G0480; J0696; J1650; J2310; J2930; J7030; J7512; J7613; J7626; 99285-25

== ENCOUNTER → 2018-08-20 | Outpatient (CLI) | payer MEDICARE, OTHER ==
[2018-08-14 07:00] VITALS: BP 122/58
[~2018-08-20] MED LIST: BUDE0.5A NEB; BUDE10.2 IH; DESV100T14 PO; DEXT30CA6 PO; IPRA3AMP29 NEB; LEVO75TA5 PO; MONT10TA9 PO; PRED20TA PO; guaiFENesin/CODEINE 100mg/10mg PO
[2018-08-20 17:14] LABS: CALCIUM 8.4 mg/dL (8.5-10.1); CREATININE 0.6 mg/dL (0.6-1.0); GFR 115.1; POTASSIUM 3.7 mmol/L (3.5-5.1)
== END | disposition home or self-care (01) ==
LOC: LAB 16:03
PROVIDERS: ATTEND Otolaryngology
DX: R13.10 Dysphagia, unspecified (principal)
CPT/HCPCS: 36415; 80048